=== PATIENT | male | born 1970 | race Caucasian/White ===

== ENCOUNTER 2020-06-28 08:26 | Outpatient (REF) | payer OTHER, SELFPAY ==
[2020-06-28 11:39] LABS: Anion Gap 13 (12-20); Blood Urea Nitrogen 7 mg/dL (9-16); Calcium 8.9 mg/dL (8.4-10.2); Carbon Dioxide 29 mmol/L (22-29); Chloride 101 mmol/L (96-108); Estimated Average Glucose 209 mg/dL; Estimated Glomerular Filt Rate > 60; Glucose Random 155 mg/dL (60-115); Hemoglobin A1c % 8.9 %; Potassium 4.3 mmol/l (3.3-5.1); Sodium 139 mmol/L (135-145)
== END 2020-06-28 08:27 | disposition home or self-care (01) ==
LOC: HO.HMGCLDS 08:26
PROVIDERS: PCP Internal Medicine; Visit Provider Internal Medicine
DX: E11.8 Type 2 diabetes mellitus with unspecified complications (principal); E78.00 Pure hypercholesterolemia, unspecified
CPT/HCPCS: 80048; 83036

== ENCOUNTER 2020-09-21 12:34 | Outpatient (REF) | payer OTHER, SELFPAY ==
[2020-09-21 14:00] LABS: MANUAL DIFF FLAG NO
[2020-09-21 14:04] LABS: Basophils Percent Auto 1.1 % (0-2); Eosinophils Absolute Auto 0.1 X10*3/uL (0.0-0.4); Eosinophils Percent Auto 1.7 % (0-4); Hematocrit 43.4 % (42-52); Imm Gran Abs Auto 0.02 X10*3/uL (0.00-0.03); Imm Gran Pct Auto 0.6 % (0.0-0.4); Lymphocytes Absolute Auto 1.3 X10*3/uL (1.2-4.9); Lymphocytes Percent Auto 36.5 % (20-40); Mean Corpuscular HGB Conc 34.6 g/dl (31.0-36.0); Mean Corpuscular Hemoglobin 30.1 pg (27.0-33.0); Mean Corpuscular Volume 87.1 fL (80-98); Mean Platelet Volume 10.5 fL (9.4-12.4); Monocytes Absolute Auto 0.4 X10*3/uL (0.1-1.2); Monocytes Percent Auto 10.5 % (2-11); Neutrophils Absolute Auto 1.8 X10*3/uL (2.0-8.3); Neutrophils Percent Auto 49.6 % (45-73); Platelet Count 251 X10*3/uL (160-400); Red Blood Count 4.98 X10*6/uL (4.60-5.80); White Blood Count 3.6 X10*3/uL (4.8-10.8)
[2020-09-21 14:47] LABS: Alanine Aminotransferase 16 U/L (0-40); Albumin Level 4.5 g/dL (3.5-5.0); Alkaline Phosphatase 35 U/L (39-117); Anion Gap 17 (12-20); Aspartate Amino Transferase 21 U/L (5-37); Bilirubin Total 1.3 mg/dL (0.0-1.0); Blood Urea Nitrogen 9 mg/dL (9-16); Calcium 8.9 mg/dL (8.4-10.2); Carbon Dioxide 26 mmol/L (22-29); Chloride 99 mmol/L (96-108); Cholesterol 214 mg/dL; Estimated Glomerular Filt Rate > 60; Glucose Fasting 132 mg/dL (60-99); HDL Cholesterol 62 mg/dL; LDL Cholesterol Calculated 139 mg/dl; Potassium 4.6 mmol/L (3.3-5.1); Sodium 137 mmol/L (135-145); Total Protein 6.9 g/dL (6.5-8.0); Triglycerides 68 mg/dL
[2020-09-21 14:50] LABS: Creatinine Urine 20.85 mg/dL; Microalbumin Urine < 5.0 mg/L
[2020-09-21 14:58] LABS: Estimated Average Glucose 177 mg/dL; Hemoglobin A1c % 7.8 %
== END 2020-09-21 12:35 | disposition home or self-care (01) ==
LOC: HO.HMGCLDS 12:34
PROVIDERS: PCP Internal Medicine; Visit Provider Internal Medicine
DX: Z00.00 Encounter for general adult medical examination without abnormal findings (principal); E11.9 Type 2 diabetes mellitus without complications; Z12.5 Encounter for screening for malignant neoplasm of prostate
CPT/HCPCS: 36415; 80053; 80061; 82043; 83036; 84153; 85025

== ENCOUNTER 2021-06-28 09:21 | Outpatient (REF) | payer OTHER, SELFPAY ==
[2021-06-28 11:35] LABS: Estimated Average Glucose 174 mg/dL; Hemoglobin A1c % 7.7 %
[2021-06-28 12:02] LABS: Alanine Aminotransferase 18 U/L (0-40); Albumin Level 4.4 g/dL (3.5-5.0); Anion Gap 13 (12-20); Aspartate Amino Transferase 20 U/L (5-37); Bilirubin Total 0.7 mg/dL (0.0-1.0); Blood Urea Nitrogen 13 mg/dL (9-16); Calcium 10.3 mg/dL (8.4-10.2); Carbon Dioxide 30 mmol/L (22-29); Chloride 105 mmol/L (96-108); Estimated Glomerular Filt Rate > 60; Glucose Fasting 52 mg/dL (60-99); Potassium 4.6 mmol/L (3.3-5.1); Sodium 143 mmol/L (135-145); Total Protein 6.8 g/dL (6.5-8.0); Triglycerides 47 mg/dL
[2021-06-28 12:03] LABS: Alkaline Phosphatase 36 U/L (39-117); Cholesterol 181 mg/dL; HDL Cholesterol 87 mg/dL; LDL Cholesterol Calculated 85 mg/dl
== END 2021-06-28 09:22 | disposition home or self-care (01) ==
LOC: HO.HMGCLDS 09:21
PROVIDERS: PCP Internal Medicine; Visit Provider Internal Medicine
DX: E11.9 Type 2 diabetes mellitus without complications (principal); E78.00 Pure hypercholesterolemia, unspecified
CPT/HCPCS: 36415; 80053; 80061; 83036

== ENCOUNTER 2021-11-13 15:24 | Outpatient (REF) | payer OTHER, SELFPAY ==
--- NOTE | ~2021-11-13 | US_ITS ---
EXAMINATION: BILATERAL LOWER EXTREMITY DEEP VENOUS ULTRASOUND CLINICAL INFORMATION: Bilateral lower extremity edema COMPARISON: No similar prior examinations are available for comparison. TECHNIQUE: Duplex Doppler imaging with compression maneuvers were performed of the bilateral lower extremity deep venous systems. FINDINGS: The bilateral visualized common femoral, femoral and popliteal veins demonstrate normal compressibility and color flow without evidence of venous thrombosis. Visualized portions of the bilateral calf veins demonstrate normal color fill-in suggesting patency. There is no evidence of a Schwartz's cyst. US/US venous duplex LE BI IMPRESSION: No evidence of deep venous thrombosis involving the bilateral lower extremities.
== END 2021-11-13 15:25 | disposition home or self-care (01) ==
LOC: HO.US 15:24
PROVIDERS: PCP Internal Medicine; Visit Provider Internal Medicine
DX: R22.43 Localized swelling, mass and lump, lower limb, bilateral (principal)
CPT/HCPCS: 93970

== ENCOUNTER 2021-11-24 06:39 | Day surgery (SDC) | payer OTHER, SELFPAY ==
[2021-11-21 09:16] VITALS: BMI 28.5
--- NOTE | 2021-11-23 09:14 | HO.ANESPROP2 ---
Documented by User: Isabella Hidalgo NP 11/23/21 09:15 HPI - Anesthesia Eval Consult details Narrative: 51yo M for Colonoscopy [facility] Past Medical History Medical History Diabetes Surgical History Surgical History (Updated 11/24/21 @ 07:31 by Latonya Stock MD) [place] teeth extracted Social History Social History Patient Tobacco Use Status: Former Tobacco user Quit Date: decades ago Use of substances other than those prescribed or required for medical reasons: No Are you DNR?: No Advance Directives: No Advance Directives Information Provided: Yes Meds Allergies Allergy/AdvReac Type Severity Reaction Status Date / Time No Known Allergies Allergy Unverified 11/19/21 19:03 Home Medications Medication Instructions Recorded Confirmed Last Taken Type insulin glargine 100 unit/mL (3 10 unit SUBCUT BEDTIME 11/23/21 11/23/21 Unknown History mL) subcutaneous pen (Basaglar KwikPen U-100 Insulin) Exam Exam Date and Time: November 23, 2021 0914 Height,Weight and Vital Signs: Height 5 ft 10 in Weight 90.265 kg Assessment and Plan Assessment Anesthesia Assessment: Chart Reviewed Documented by User: Latonya Stock MD 11/24/21 07:34 [facility] Past Medical History Medical History Diabetes Family History Family history of problems with anesthesia: No Surgical History Surgical History (Updated 11/24/21 @ 07:31 by Latonya Stock MD) [place] teeth extracted History of Problems with Anesthesia: No Social History Social History Patient Tobacco Use Status: Former Tobacco user Quit Date: decades ago Use of substances other than those prescribed or required for medical reasons: No Are you DNR?: No Advance Directives: No Advance Directives Information Provided: Yes Meds Allergies Allergy/AdvReac Type Severity Reaction Status Date / Time No Known Allergies Allergy Unverified 11/19/21 19:03 Home Medications Medication Instructions Recorded Confirmed Last Taken Type insulin glargine 100 unit/mL (3 10 unit SUBCUT BEDTIME 11/23/21 11/23/21 Unknown History mL) subcutaneous pen (Basaglar KwikPen U-100 Insulin) Exam Height,Weight and Vital Signs: Height 5 ft 10 in Weight 90.265 kg Vital Signs Temp Pulse Resp BP Pulse Ox 11/24/21 07:07 97.6 F 62 18 125/68 100 Pertinent Lab Results Pertinent Lab Results: POC 170mg/dL Airway Mallampati Class: I TM Dist: >3cm Neck ROM: Full Loose/Missing/Broken Teeth: No Heart: RRR Lungs: CTAB Assessment and Plan Assessment Anesthesia Assessment: Anesthesia Plan Discussed Final Anesthetic Review Family History of Problems with Anesthesia: No History of Problems with Anesthesia: No NPO: Yes ASA Class: II Final Preanesthetic Review: No Changes in Pt Med Stat, Meds/Allgs Chart Reviewed, Consent Obtained/Reviewed and Anes Risks/Benef Reviewed Patient Risk: Low Procedure Risk: Low Assessment/Block/Sedation in SS: Assess/Block/Sedation-SS Anesthetic Plan Anesthetic Plan: MAC: Disposition: Standard PACU
[2021-11-24 06:43] VITALS: BMI 27.2
[2021-11-24 07:07] VITALS: BP 125/68; PULSE 62; RESP 18; TEMP 36.4; O2SAT 100
[2021-11-24] MEDS: Lactated Ringers 1,000 ML 100 ML IVCONT (07:18)
[2021-11-24 08:11] LABS: Glucose, Whole Blood 170 mg/dL (60-115)
--- NOTE | 2021-11-24 08:31 | P.BOP_ITS ---
Brief Operative Note Date of Service: 11/24/21 Pre-op diagnosis: SCREENING Post-op diagnosis: other (Polyps) Procedure: Colonoscopy to the cecum and TI with cold snare polypectomy and bx/removal of polyps Surgeon: Richard Youssef Anesthesia: MAC Was an Machine Coremaker used for this Procedure?: No Estimated blood loss (mL): 2.0 Pathology: other (A. Polyps at 20cm) Condition: stable Disposition: PACU
[2021-11-24 08:34] VITALS: BP 98/50; PULSE 68; RESP 16; TEMP 36.4; O2SAT 97
[2021-11-24 08:49] VITALS: BP 124/73; PULSE 66; RESP 16; TEMP 36.4; O2SAT 100
[2021-11-24 09:04] VITALS: BP 117/82; PULSE 65; RESP 16; O2SAT 100
--- NOTE | 2021-11-24 18:49 | OP_ITS ---
SURGEON: Richard Youssef MD INDICATIONS: The patient presents for evaluation of colorectal cancer screening and family history of colon cancer. Full consent was obtained from him for this, including risks of bleeding and perforation. PREOPERATIVE DIAGNOSIS: POSTOPERATIVE DIAGNOSIS: PROCEDURE PERFORMED: Colonoscopy to the cecum and terminal ileum with cold snare polypectomy, and biopsy with removal of polyp. ESTIMATED BLOOD LOSS: COMPLICATIONS: ANESTHESIA: Monitored anesthesia care. ASSISTANTS: SPECIMENS: PREOPERATIVE DIAGNOSES: Colorectal cancer screening and family history of colon cancer. POSTOPERATIVE DIAGNOSES: Colorectal cancer screening and family history of colon cancer, small colon polyps, small internal hemorrhoids. DESCRIPTION OF PROCEDURE: The patient was placed in the left lateral decubitus position. The digital rectal exam revealed no abnormalities. The Olympus video pediatric colonoscope was entered into the rectum advanced easily to the cecum. Once in the cecum I did identify normal-appearing cecal pouch with appendiceal orifice and a normal-appearing ileocecal valve. The terminal ileum was cannulated and appeared normal. The scope withdrawn back from the colon. The entire cecum and ileocecal valve appeared normal. The scope was slowly withdrawn assessing all mucosal surfaces carefully. Preparation was excellent. At 20 cm were 3 probable hyperplastic polyps. One was approximately 5 or 6 mm in diameter, and this was removed with cold snare polypectomy, although not recovered. The polypectomy site appeared clean, without any sign of residual polyp nor any sign of significant bleeding. The other 2 polyps were less than 5 mm and were each biopsied and completely removed with cold biopsy forceps. I did not visualize any other polyps, colitis, nor angiodysplasia. In the rectum, scope was retroflexed visualizing minimal internal hemorrhoids, but no other pathology. The rectal mucosa appeared normal. The scope was straightened and withdrawn from the patient. He tolerated the procedure well and was returned to the recovery area in stable condition. IMPRESSION: 1. Small colon polyps. 2. Small internal hemorrhoids. PLAN: The results of the pathology will be checked. Even if these are not tubular adenomas, I would still recommend a followup colonoscopy in 5 years given the family history of colon cancer in a maternal grandmother and a maternal 1st cousin. MD JACKIE Weaver/KHADAR / [id number] [facility]
== END 2021-11-24 09:33 | disposition home or self-care (01) ==
PROVIDERS: PCP Internal Medicine; Visit Provider Internal Medicine
PROC: 0DJD8ZZ Inspection of Lower Intestinal Tract, Via Natural or Artificial Opening Endoscopic (ICD-10-PCS; CPT 45378; principal; 2021-11-24 07:30)
DX: Z12.11 Encounter for screening for malignant neoplasm of colon (principal); Z80.0 Family history of malignant neoplasm of digestive organs; K63.5 Polyp of colon; K64.8 Other hemorrhoids; E11.9 Type 2 diabetes mellitus without complications; Z79.4 Long term (current) use of insulin; Z87.891 Personal history of nicotine dependence
CPT/HCPCS: 45385; 45380; 82947; 88305; J2250

== ENCOUNTER 2021-11-28 08:06 | Outpatient (REF) | payer OTHER, SELFPAY ==
[2021-11-28 11:21] LABS: MANUAL DIFF FLAG NO
[2021-11-28 11:35] LABS: Basophils Percent Auto 1.4 % (0-2); Eosinophils Absolute Auto 0.1 X10*3/uL (0.0-0.4); Eosinophils Percent Auto 2.1 % (0-4); Hematocrit 40.3 % (42.0-52.0); Hemoglobin 13.7 g/dl (14.0-18.0); Imm Gran Abs Auto 0.01 X10*3/uL (0.00-0.03); Imm Gran Pct Auto 0.3 % (0.0-0.4); Lymphocytes Absolute Auto 1.3 X10*3/uL (1.2-4.9); Lymphocytes Percent Auto 46.2 % (20-40); Mean Corpuscular Hemoglobin 31.1 pg (27.0-33.0); Mean Corpuscular Volume 91.6 fL (80.0-98.0); Mean Platelet Volume 10.2 fL (9.4-12.4); Monocytes Absolute Auto 0.3 X10*3/uL (0.1-1.2); Monocytes Percent Auto 11.8 % (2-11); Neutrophils Absolute Auto 1.1 x10*3/uL (2.0-8.3); Neutrophils Percent Auto 38.2 % (45-73); Platelet Count 222 X10*3/uL (160-400); Red Cell Distribution Width 12.1 % (11.0-16.0); White Blood Count 2.9 X10*3/uL (4.8-10.8)
[2021-11-28 11:47] LABS: Alanine Aminotransferase 22 U/L (0-40); Albumin Level 4.1 g/dL (3.5-5.0); Alkaline Phosphatase 38 U/L (39-117); Anion Gap 14 (12-20); Aspartate Amino Transferase 23 U/L (5-37); Bilirubin Total 0.5 mg/dL (0.0-1.0); Blood Urea Nitrogen 11 mg/dL (9-16); Calcium 9.4 mg/dL (8.4-10.2); Carbon Dioxide 24 mmol/L (22-29); Chloride 107 mmol/L (96-108); Estimated Glomerular Filt Rate > 60; Glucose Random 203 mg/dL (60-115); Potassium 4.2 mmol/L (3.3-5.1); Sodium 141 mmol/L (135-145); Total Protein 6.6 g/dL (6.5-8.0)
[2021-11-28 12:03] LABS: Estimated Average Glucose 183 mg/dL
[2021-12-05 17:46] LABS: Islet Cell Antibody Screen NEGATIVE (NEGATIVE)
== END 2021-11-28 08:07 | disposition home or self-care (01) ==
LOC: HO.HMGCLDS 08:06
PROVIDERS: PCP Internal Medicine; Visit Provider Internal Medicine
DX: E11.9 Type 2 diabetes mellitus without complications (principal); Z79.4 Long term (current) use of insulin
CPT/HCPCS: 36415; 80053; 83036; 85025; 86255; 86341

== ENCOUNTER 2024-03-11 14:13 | Outpatient (REF) | payer OTHER, SELFPAY ==
[2024-03-11 14:34] LABS: MANUAL DIFF FLAG NO
[2024-03-11 15:12] LABS: Basophils Percent Auto 1.2 % (0-2); Eosinophils Percent Auto 1.2 % (0-4); Hematocrit 41.2 % (42.0-52.0); Hemoglobin 14.6 g/dl (14.0-18.0); Imm Gran Abs Auto 0.02 X10*3/uL (0.00-0.03); Imm Gran Pct Auto 0.6 % (0.0-0.4); Lymphocytes Absolute Auto 1.3 X10*3/uL (1.2-4.9); Lymphocytes Percent Auto 39.3 % (20-40); Mean Corpuscular HGB Conc 35.4 g/dl (31.0-36.0); Mean Corpuscular Hemoglobin 31.1 pg (27.0-33.0); Mean Corpuscular Volume 87.8 fL (80.0-98.0); Mean Platelet Volume 9.7 fL (9.4-12.4); Monocytes Absolute Auto 0.5 X10*3/uL (0.1-1.2); Monocytes Percent Auto 13.4 % (2-11); Neutrophils Absolute Auto 1.5 x10*3/uL (2.0-8.3); Neutrophils Percent Auto 44.3 % (45-73); Platelet Count 241 X10*3/uL (160-400); Red Blood Count 4.69 X10*6/uL (4.60-5.80); Red Cell Distribution Width 12.5 % (11.0-16.0); White Blood Count 3.4 X10*3/uL (4.8-10.8)
[2024-03-12 14:43] LABS: Immunoglobulin A 318 mg/dL (47-310)
[2024-03-12 21:33] LABS: Gliadin Deamidated IgA Ab 2.6 U/mL; Gliadin Deamidated IgG Ab 3.3 U/mL; Transglutaminase Ab IgG 2.3 U/mL; Transglutaminase IgA <1.0 U/mL
[2024-03-18 01:29] LABS: Endomysial IgA Antibody Negative (Negative)
== END 2024-03-11 14:14 | disposition home or self-care (01) ==
LOC: HO.LAB 14:13
PROVIDERS: PCP Internal Medicine; Visit Provider Internal Medicine
DX: R19.4 Change in bowel habit (principal)
CPT/HCPCS: 36415; 82784; 85025; 86231; 86258; 86364

== ENCOUNTER 2024-03-12 | Outpatient (REF) | payer OTHER, SELFPAY | END 2024-03-12 00:01 | disposition home or self-care (01) | LOC: HO.LNP | PROVIDERS: Visit Provider Internal Medicine | DX: R19.4 Change in bowel habit (principal) | CPT/HCPCS: 87177; 87209; 87329 ==

== ENCOUNTER 2024-03-13 14:29 | Outpatient (REF) | payer OTHER, SELFPAY ==
[2024-03-14 09:04] LABS: Campylobacter Not Detected (Not Detect.); Plesiomonas shigelloides Not Detected (Not Detect.); Salmonella Not Detected (Not Detect.); Vibrio Cholerae Not Detected (Not Detect.)
[2024-03-14 09:06] LABS: Adenovirus F 40/41 Not Detected (Not Detect.); Astrovirus Not Detected (Not Detect.); Cryptosporidium Not Detected (Not Detect.); Cyclospora cayetanensis Not Detected (Not Detect.); E. coli EAEC Not Detected (Not Detect.); E. coli EPEC Not Detected (Not Detect.); E. coli ETEC Not Detected (Not Detect.); E. coli STEC Not Detected (Not Detect.); Entamoeba histolytica Not Detected (Not Detect.); Giardia lamblia Not Detected (Not Detect.); Norovirus GI/GII Not Detected (Not Detect.); Rotavirus A Not Detected (Not Detect.); Sapovirus Not Detected (Not Detect.); Shigella sp./EIEC Not Detected (Not Detect.); Yersinia enterocolitica Detected (Not Detect.)
[2024-03-16 10:13] LABS: Vibrio Not Detected (Not Detect.)
== END 2024-03-13 14:30 | disposition home or self-care (01) ==
LOC: HO.LNP 14:29
PROVIDERS: Visit Provider Internal Medicine
DX: R19.4 Change in bowel habit (principal)
CPT/HCPCS: 87507

== ENCOUNTER 2024-05-08 14:59 | Outpatient (REF) | payer OTHER, SELFPAY ==
[2024-05-09 14:04] LABS: Adenovirus F 40/41 Not Detected (Not Detect.); Astrovirus Not Detected (Not Detect.); Campylobacter Not Detected (Not Detect.); Cryptosporidium Not Detected (Not Detect.); Cyclospora cayetanensis Not Detected (Not Detect.); E. coli EAEC Not Detected (Not Detect.); E. coli EPEC Not Detected (Not Detect.); E. coli ETEC Not Detected (Not Detect.); E. coli STEC Not Detected (Not Detect.); Entamoeba histolytica Not Detected (Not Detect.); Giardia lamblia Not Detected (Not Detect.); Norovirus GI/GII Not Detected (Not Detect.); Plesiomonas shigelloides Not Detected (Not Detect.); Rotavirus A Not Detected (Not Detect.); Salmonella Not Detected (Not Detect.); Sapovirus Not Detected (Not Detect.); Shigella sp./EIEC Not Detected (Not Detect.); Vibrio Not Detected (Not Detect.); Vibrio Cholerae Not Detected (Not Detect.)
[2024-05-09 15:22] LABS: Yersinia enterocolitica Detected (Not Detect.)
== END 2024-05-08 15:00 | disposition home or self-care (01) ==
LOC: HO.LNP 14:59
PROVIDERS: Visit Provider Internal Medicine
DX: R19.4 Change in bowel habit (principal)
CPT/HCPCS: 87177; 87209; 87329; 87507

== ENCOUNTER 2024-11-04 14:30 | Outpatient (AMB) | payer OTHER, SELFPAY ==
--- NOTE | 2024-11-04 14:18 | A.OFFPC_ITS ---
Vital Signs 11/04/24 14:44 Height 5 ft 10 in Weight 221 lb BMI 31.7 BP 126/80 Blood Pressure Location Lt brachial Position Sitting Pulse 67 Pulse Source Pulse Oximeter Temp 97.4 F Temp Source Axillary Pulse Oximetry (%) 97 Oxygen Delivery Method Room Air Intake Visit Reasons: Routine Manager Ct Required: No Accompanied by: Self / Same As Patient Allergies No Known Allergies Allergy (Verified 11/04/24 14:19) Tobacco use date assessed: 11/04/24 Dental Screening Dental Screen Date: 11/04/24 Did you have a dental visit in the last 12 months?: Yes Did you have a dental problem in the last 6 months where you did not have access to dental care?: No [facility] Medical History (Updated 11/04/24 @ 15:15 by Royal Robertson MD) Erectile dysfunction Diabetes Surgical History History of colonoscopy (~11/24/21) [place] teeth extracted Family History (Updated 11/04/24 @ 14:51 by Radha Denny MA) Mother No problems noted. Father No problems noted. Social History Housing: House Patient Tobacco Use Status: Former Tobacco user e-Cigarette/Vaping Use: Former Use service: No Current occupational status: employed Cognitive needs: No Hearing needs: No Vision needs: Yes (rx glasses) Questionnaire PHQ-9 Over the last 2 weeks, how often have you been bothered by any of the following problems? 1. Little interest or pleasure in doing things: not at all 2. Feeling down, depressed, or hopeless: not at all 3. Trouble falling or staying asleep, or sleeping too much: not at all 4. Feeling tired or having little energy: not at all 5. Poor appetite or overeating: not at all 6. Feeling bad about yourself - or that you are a failure or have let yourself or your family down: not at all 7. Trouble concentrating on things, such as reading the newspaper or watching television: not at all 8. Moving or speaking so slowly that other people could have noticed. Or the opposite - being so fidgety or restless that you have been moving around a lot more than usual: not at all 9. Thoughts that you would be better off or of hurting yourself in some way: not at all Total score: 0 Source: Developed by Drs. Richard Guerra, Veronika Lew, Mark Reeves and colleagues, with an educational garland from [employer]. Thrive Questionnaire Date Thrive assessed: 11/04/24 I am a: Patient Within the past 12 months, did the food you bought not last and you didn't have the money to get more?: Never true Within the past 12 months, did you worry whether your food would run out before you got money to buy more?: Never true Do you have trouble paying for medicines?: No Do you have trouble getting transportation to medical appointments?: No Do you have trouble paying your heating and electricity bill?: No Do you have trouble taking care of your child, family member or friend?: No Do you have trouble with day-to-day activities such as bathing, preparing meals, shopping, managing finances, etc.?: No Are you currently unemployed and looking for a job?: No Are you interested in more education?: No THRIVE Score: 0 AUDIT C Alcohol Use Questionnaire (AUDIT-C) 1. How often do you have a drink containing alcohol?: Monthly or less 2. How many drinks containing alcohol do you have on a typical day when you are drinking?: 1 or 2 3. How often do you have six or more drinks on one occasion?: Less than monthly Total Score: 2 DESI-7 AMB Questionnaire DESI-7 Date DESI - 7 assessed: 11/04/24 Feeling nervous, anxious, or on edge: 0 = Not at all Not being able to stop or control worryin = Not at all Worrying too much about different things: 0 = Not at all Trouble relaxin = Not at all Being so restless that it is hard to sit still: 0 = Not at all Becoming easily annoyed or irritable: 0 = Not at all Feeling afraid as if something awful might happen: 0 = Not at all Total DESI-7 score (0-4 normal; 5-9 mild; 10-14 moderate; 15-21 severe): 0 Source: Developed by Veronika Schwartz Kurt Kroenke and colleagues, with an educational garland from [employer]. Physical exam (Primary Care) Vital Signs: Last Vital Signs Temp 97.4 F 11/04/24 14:44 Pulse 67 11/04/24 14:44 BP 126/80 11/04/24 14:44 Pulse Ox 97 11/04/24 14:44 Oxygen Delivery Method Room Air 11/04/24 14:44 BMI result Body Mass Index 31.7 Tobacco/Smoking Status: Tobacco use Status Tobacco use date assessed 11/04/24 11/04/24 14:20 Patient Tobacco Use Status Former Tobacco user 11/04/24 14:20 e-Cigarette/Vaping Use Former Use 11/04/24 14:20 PHQ-9: PHQ-9 Score PHQ-9: Total score 0 11/04/24 14:52 Thrive Assessment: Date of Thrive Assessment Date Thrive assessed 11/04/24 11/04/24 14:20 Coding Level of Care Code New Pt Level 4 (50232) Complex EM visit Add On G2211 Diagnoses Diabetes E11.9 Erectile dysfunction N52.9 Assessment & Plan Assessment & Plan (1) Diabetes: Comment: IDDM Code(s): E11.9 - Type 2 diabetes mellitus without complications Category: Medical Plan: Condition is stable (2) Erectile dysfunction: Code(s): N52.9 - Male erectile dysfunction, unspecified Category: Medical Plan: Urology referral is made. Plan History of Present Illness The patient is a 54-year-old male presenting with erectile dysfunction and concerns of an oral lesion. The erectile dysfunction has been partially managed with medication, but the patient wishes to explore additional interventions through a urologist. Also noted is a persistent white patch on his lower lip which has not resolved over the last few months, prompting a future dermatological evaluation. The patient has a history of type 1 diabetes, which initially presented in his 40s and was initially misclassified as type 2 diabetes until a hospitalization for diabetic ketoacidosis confirmed the correct diagnosis. 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 - Genitourinary: Reports erectile dysfunction; requires urology referral. - Dermatologic: Reports a persistent white lesion on the lip. - Musculoskeletal: Denies physical pain Physical Exam General: Cooperative and healthy appearing Nutritional Appearance: Well nourished Orientation/consciousness: Patient oriented x3 Limitations: No limitations Head: Normal to inspection General: Appearance normal, both eyes and all related structures Neck: Normal visual inspection Chest: Normal palpation of entire chest wall Respiratory: No pains here ormal respiratory effort Neurology: Patient oriented x3, physically active Results Plan 1. Type 1 Diabetes Mellitus - Maintain current insulin therapy. - Ongoing endocrinology follow-up. 2. Erectile Dysfunction - Urology referral for comprehensive evaluation. 3. Oral Lesion - Dermatology referral for assessment and potential biopsy in December. Discussion Notes During the visit, we discussed the management of the patient's type 1 diabetes, which is being effectively managed under the care of an die repairer stamping with recent A1c levels at 6.2. For erectile dysfunction, I recommended a referral to a urologist, emphasizing the potential for more targeted treatment options beyond his current medications. Regarding the oral lesion, I advised that while the current appearance does not suggest immediate danger such as bleeding, a dermatological evaluation with the potential for a biopsy is warranted to rule out skin cancer. Finally, we agreed on a further dermatological evaluation scheduled for December, and I assured the patient that the procedure is non-urgent given the current clinical presentation. Patient Instructions - Schedule and attend the urology and dermatology appointments as discussed. - Continue regular use of prescribed insulin and follow up with your die repairer stamping. - Monitor the oral lesion for any changes such as bleeding or increase in size. - Maintain your physical exercise routine as planned. - Return for a follow-up appointment in six months or sooner if symptoms worsen. Orders: Referrals Urology Referral N52.9 - Male erectile dysfunction, unspecified Medications: Discontinued sulfamethoxazole-trimethoprim 800-160 mg Discontinued Reason: Patient no longer taking 1 tab PO BID 10 days 20 tabs 0RF ciprofloxacin HCl Discontinued Reason: Patient no longer taking 500 mg PO BID 10 tabs 0RF
[2024-11-04 14:44] VITALS: BP 126/80; PULSE 67; TEMP 36.3; O2SAT 97; BMI 31.7
--- OUTSIDE RECORDS SUMMARY | 2024-11-04 15:40 | XMS_ITS ---
Author Organization [facility] Address [address] [place] [phone] Care Team Providers Care Clipper Counters Name Role Phone NOÉ, KARTIK Primary Care Provider Richard Olivarez [phone] REASON FOR VISIT R/S OV Encounters Encounter Location Date Provider Diagnosis [facility] [address] [facility] [address] [place] [phone] 09/23/2024 Richard Youssef Plan Of Treatment No Information Progress Notes * YARELI MENDOZADOB:[birth year] (54 yo M)Acc No.[id number]:09/23/2024 Patient:?SULAIMAN MENDOZA :1970???Age:54 Y???Sex:Male Address:[address] [place] [address] [place] , [place], [address] * true * Date:? Generated for Printi purvi/Faino/eTransmitting on:?11/04/2024 03:40 PM EDT
--- OUTSIDE RECORDS SUMMARY | 2024-11-04 15:40 | XMS_ITS | Patient Health Record ---
Author Organization [facility] Address [address] [place] [address] Care Team Providers Care Aircraft Charter Dispatcher Name Role Phone NOÉ, JUVE Primary Care Provider Richard Olivarez [phone] Allergies No Known Allergies Results Component Value Reference Range Notes Giardia Ag Stool EIA Reviewed date:03/25/2024 07:08:46 PM Interpretation: Performing Lab:[facility], [address] [place] [phone] Notes/Report: Giardia Ag Stool EIA SEE NOTE GIARDIA AG, EIA, STOOL Micro Number: [id number] Test Status: Final Specimen Source: Stool Specimen Quality: Adequate Giardia Result 1: Not Detected Reference Range: Not Detected NOTE: Due to intermittent shedding, one negative sample does not necessarily rule out the presence of a parasitic infection. THIS TEST WAS PERFORMED AT: [facility] [address] [address] UCHE PANG MD Ova and Parasite Reviewed date:03/25/2024 07:08:28 PM Interpretation: Performing Lab:[address] [phone] Notes/Report: Ova and Parasite SEE NOTE OVA AND PARASITES, CONC AND PERM SMEAR Micro Number: [id number] Test Status: Final Specimen Source: Stool Specimen Quality: Adequate CONCENTRATION 1: No ova or parasites seen TRICHROME 1: No ova or parasites seen Routine Ova and Parasite exam may not detect some parasites that occasionally cause diarrheal illness. Cryptosporidium Antigen and/or Cyclospora Isospora Exam may be ordered to detect these parasites. For additional information, please refer to https://education.CPXi/faq/FAQ20 3 (This link is being provided for informational/ educational purposes only.) THIS TEST WAS PERFORMED AT: [facility] [address] [place] [phone] UCHE PANG MD GI PANEL Reviewed date:03/17/2024 06:17:49 PM Interpretation: Performing Lab:[facility], [address] [place] [phone] Notes/Report: Campylobacter Not Detected Not Detect. Plesiomonas shigelloides Not Detected Not Detect. Salmonella Not Detected Not Detect. Vibrio Detected Not Detect. 03/16/24 1012: * This is a corrected result * Vibrio previously reported as: Detected A Corrected results called to and read back by RODRIGO Pena FROM PROVIDER'S OFFICE at 1012 on 03/16/24 by KAILA. Vibrio Cholerae Not Detected Not Detect. Yersinia enterocolitica Detected Not Detect. Results of DETECTED YERSINIA ENTEROCOLITICA called to and AT Results of DETECTED YERSINIA ENTEROCOLITICA called to and AT read back by DR. MARADIAGA on 03/14/24 at 0905 by KAILA. read back by DR. MARADIAGA on 03/14/24 at 0905 by KAILA. CRITICAL RESULT CALLED TO INFECTION CONTROL VOICEMAIL 03/14 CRITICAL RESULT CALLED TO INFECTION CONTROL VOICEMAIL 03/14 AT 0855 AT 0855 E. coli EAEC Not Detected Not Detect. E. coli EPEC Not Detected Not Detect. E. coli ETEC Not Detected Not Detect. E. coli STEC Not Detected Not Detect. E. coli O157 Not applicable Not Detect. E. coli containing the O157 antigen are a subset of E. coli containing the O157 antigen are a subset of Shiga-like toxin-producing E. coli (STEC). Shiga-like toxin-producing E. coli (STEC). Shigella sp./EIEC Not Detected Not Detect. Cryptosporidium Not Detected Not Detect. Cyclospora cayetanensis Not Detected Not Detect. Entamoeba histolytica Not Detected Not Detect. Giardia lamblia Not Detected Not Detect. Adenovirus F 40/41 Not Detected Not Detect. Astrovirus Not Detected Not Detect. Norovirus GI/GII Not Detected Not Detect. Rotavirus A Not Detected Not Detect. Sapovirus Not Detected Not Detect. All results must be correlated with clinical findings. All results must be correlated with clinical findings. Negative results do not exclude the possibility of Negative results do not exclude the possibility of gastrointestinal infection and should not be used as the gastrointestinal infection and should not be used as the sole basis for diagnosis, treatment, or other management sole basis for diagnosis, treatment, or other management decisions. Virus, bacteria, and parasite nucleic acid may decisions. Virus, bacteria, and parasite nucleic acid may persist in vivo independently of organism viability. persist in vivo independently of organism viability. Additionally, some organisms may be carried symptomatically. Additionally, some organisms may be carried symptomatically. Detection of organism targets does not imply that the Detection of organism targets does not imply that the corresponding organisms are infectious or are the causative corresponding organisms are infectious or are the causative agents for clinical symptoms. There is a risk of false agents for clinical symptoms. There is a risk of false negative values due to the presence of sequence variants in negative values due to the presence of sequence variants in the gene targets of the assay, amplification inhibitors in the gene targets of the assay, amplification inhibitors in specimens, or inadequate numbers of organisms for specimens, or inadequate numbers of organisms for amplification. amplification. The identification of several diarrheagenic E. coli The identification of several diarrheagenic E. coli pathotypes has historically relied upon phenotypic pathotypes has historically relied upon phenotypic characteristics. This panel targets genetic determinants characteristics. This panel targets genetic determinants characteristic of most pathogenic strains, but may not characteristic of most pathogenic strains, but may not detect all strains having phenotypic characteristics of a detect all strains having phenotypic characteristics of a pathotype. pathotype. The performance of this test has not been established for The performance of this test has not been established for monitoring treatment of infection with any of the panel monitoring treatment of infection with any of the panel organisms. organisms. This assay is performed by Multiplexed PCR, utilizing the This assay is performed by Multiplexed PCR, utilizing the [employer] Film Array. [employer] Film Array. Campylobacter Not Detected Not Detect. Plesiomonas shigelloides Not Detected Not Detect. Salmonella Not Detected Not Detect. Vibrio Not Detected Not Detect. 03/16/24 1012: * This is a corrected result * Vibrio previously reported as: Detected A Corrected results called to and read back by RODRIGO Pena FROM PROVIDER'S OFFICE at 1012 on 03/16/24 by KAILA. Vibrio Cholerae Not Detected Not Detect. Yersinia enterocolitica Detected Not Detect. Results of DETECTED YERSINIA ENTEROCOLITICA called to and AT Results of DETECTED YERSINIA ENTEROCOLITICA called to and AT read back by DR. MARADIAGA on 03/14/24 at 0905 by KAILA. read back by DR. MARADIAGA on 03/14/24 at 0905 by KAILA. CRITICAL RESULT CALLED TO INFECTION CONTROL VOICEMAIL 03/14 CRITICAL RESULT CALLED TO INFECTION CONTROL VOICEMAIL 03/14 AT 0855 AT 0855 E. coli EAEC Not Detected Not Detect. E. coli EPEC Not Detected Not Detect. E. coli ETEC Not Detected Not Detect. E. coli STEC Not Detected Not Detect. E. coli O157 Not applicable Not Detect. E. coli containing the O157 antigen are a subset of E. coli containing the O157 antigen are a subset of Shiga-like toxin-producing E. coli (STEC). Shiga-like toxin-producing E. coli (STEC). Shigella sp./EIEC Not Detected Not Detect. Cryptosporidium Not Detected Not Detect. Cyclospora cayetanensis Not Detected Not Detect. Entamoeba histolytica Not Detected Not Detect. Giardia lamblia Not Detected Not Detect. Adenovirus F 40/41 Not Detected Not Detect. Astrovirus Not Detected Not Detect. Norovirus GI/GII Not Detected Not Detect. Rotavirus A Not Detected Not Detect. Sapovirus Not Detected Not Detect. All results must be correlated with clinical findings. All results must be correlated with clinical findings. Negative results do not exclude the possibility of Negative results do not exclude the possibility of gastrointestinal infection and should not be used as the gastrointestinal infection and should not be used as the sole basis for diagnosis, treatment, or other management sole basis for diagnosis, treatment, or other management decisions. Virus, bacteria, and parasite nucleic acid may decisions. Virus, bacteria, and parasite nucleic acid may persist in vivo independently of organism viability. persist in vivo independently of organism viability. Additionally, some organisms may be carried symptomatically. Additionally, some organisms may be carried symptomatically. Detection of organism targets does not imply that the Detection of organism targets does not imply that the corresponding organisms are infectious or are the causative corresponding organisms are infectious or are the causative agents for clinical symptoms. There is a risk of false agents for clinical symptoms. There is a risk of false negative values due to the presence of sequence variants in negative values due to the presence of sequence variants in the gene targets of the assay, amplification inhibitors in the gene targets of the assay, amplification inhibitors in specimens, or inadequate numbers of organisms for specimens, or inadequate numbers of organisms for amplification. amplification. The identification of several diarrheagenic E. coli The identification of several diarrheagenic E. coli pathotypes has historically relied upon phenotypic pathotypes has historically relied upon phenotypic characteristics. This panel targets genetic determinants characteristics. This panel targets genetic determinants characteristic of most pathogenic strains, but may not characteristic of most pathogenic strains, but may not detect all strains having phenotypic characteristics of a detect all strains having phenotypic characteristics of a pathotype. pathotype. The performance of this test has not been established for The performance of this test has not been established for monitoring treatment of infection with any of the panel monitoring treatment of infection with any of the panel organisms. organisms. This assay is performed by Multiplexed PCR, utilizing the This assay is performed by Multiplexed PCR, utilizing the [employer] Film Array. Pump! Array. CORRECTED REPORT Complete Blood Count Auto Di ff Reviewed date:03/17/2024 12:41:30 PM Interpretation: Performing Lab:[facility], [address] [place] [phone] Notes/Report: White Blood Count 3.4 4.8-10.8 X10*3/uL Red Blood Count 4.69 4.60-5.80 X10*6/uL Hemoglobin 14.6 14.0-18.0 g/dl Hematocrit 41.2 42.0-52.0 % Mean Corpuscular Volume 87.8 80.0-98.0 fL Mean Corpuscular Hemoglobin 31.1 27.0-33.0 pg Mean Corpuscular HGB Conc 35.4 31.0-36.0 g/dl Red Cell Distribution Width 12.5 11.0-16.0 % Platelet Count 241 160-400 X10*3/uL Mean Platelet Volume 9.7 9.4-12.4 fL Neutrophils Percent Auto 44.3 45-73 % Imm Gran Pct Auto 0.6 0.0-0.4 % Lymphocytes Percent Auto 39.3 20-40 % Monocytes Percent Auto 13.4 2-11 % Eosinophils Percent Auto 1.2 0-4 % Basophils Percent Auto 1.2 0-2 % NRBC Pct Auto 0.0 0.0-0.2 /100WBC Neutrophils Absolute Auto 1.5 2.0-8.3 x10*3/u L Imm Gran Abs Auto 0.02 0.00-0.03 X10*3/uL Lymphocytes Absolute Auto 1.3 1.2-4.9 X10*3/u L Monocytes Absolute Auto 0.5 0.1-1.2 X10*3/uL Eosinophils Absolute Auto 0.0 0.0-0.4 X10*3/u L Basophils Absolute Auto 0.0 0.0-0.2 X10*3/uL NRBC Abs Auto 0.000 0.0-0.012 X10*3/uL Immunoglobulin A Reviewed date:03/19/2024 07:10:59 AM Interpretation: Performing Lab:[facility], [address] [place] [phone] Notes/Report: Immunoglobulin A 318 47-310 mg/dL THIS TEST WAS PERFORMED AT: [facility] [address] [place] [phone] UCHE PANG MD Transglutaminase Ab IgG Reviewed date:03/19/2024 07:11:19 AM Interpretation: Performing Lab:[address] [phone] Notes/Report: Transglutaminase Ab IgG 2.3 Value Interpretation ----- <15.0 Antibody not detected > or = 15.0 Antibody detected THIS TEST WAS PERFORMED AT: [facility] [address] [place] [phone] UCHE PANG MD Transglutaminase IgA Reviewed date:03/19/2024 07:11:27 AM Interpretation: Performing Lab:[facility], [address] [place] [phone] Notes/Report: Transglutaminase IgA <1.0 Value Interpretation ----- <15.0 Antibody not detected > or = 15.0 Antibody detected THIS TEST WAS PERFORMED AT: [facility] [address] [place] [phone] UCHE PANG MD Gliadin Ab Panel Reviewed date:03/19/2024 07:11:47 AM Interpretation: Performing Lab:[facility], [address] [place] [phone] Notes/Report: Gliadin Deamidated IgA Ab 2.6 Value Interpretation ----- <15.0 Antibody not detected > or = 15.0 Antibody detected Gliadin Deamidated IgG Ab 3.3 Value Interpretation ----- <15.0 Antibody not detected > or = 15.0 Antibody detected THIS TEST WAS PERFORMED AT: [facility] [address] [place] [phone] UCHE PANG MD Endomysial IgA rflx Titer Reviewed date:03/19/2024 07:11:55 AM Interpretation: Performing Lab:[facility], [address] [place] [phone] Notes/Report: Endomysial IgA Antibody Negative Negative THIS TEST WAS PERFORMED AT: [facility] [id number] [place] [phone] CLARIBEL FULLER MD,PHD Endomysial Titer TNP Giardia Ag Stool EIA Reviewed date:05/12/2024 05:33:47 PM Interpretation: Performing Lab:[facility], [address] [place] [phone] Notes/Report: Giardia Ag Stool EIA SEE NOTE GIARDIA AG, EIA, STOOL Micro Number: [id number] Test Status: Final Specimen Source: Stool Specimen Quality: Adequate Giardia Result 1: Not Detected Reference Range: Not Detected NOTE: Due to intermittent shedding, one negative sample does not necessarily rule out the presence of a parasitic infection. THIS TEST WAS PERFORMED AT: [facility] [address] [phone] UCHE PANG MD Ova and Parasite Reviewed date:05/12/2024 05:34:12 PM Interpretation: Performing Lab:[address] [phone] Notes/Report: Ova and Parasite SEE NOTE OVA AND PARASITES, CONC AND PERM SMEAR Micro Number: [id number] Test Status: Final Specimen Source: Stool Specimen Quality: Adequate CONCENTRATION 1: No ova or parasites seen TRICHROME 1: No ova or parasites seen Routine Ova and Parasite exam may not detect some parasites that occasionally cause diarrheal illness. Cryptosporidium Antigen and/or Cyclospora and Isospora Exam may be ordered to detect these parasites. One negative sample does not necessarily rule out the presence of a parasitic infection. For additional information, please refer to https://education.CPXi/faq/FAQ20 3 (This link is being provided for informational/ educational purposes only.) THIS TEST WAS PERFORMED AT: [facility] [address] [phone] ALISON MURPHY MD GI PANEL Reviewed date:06/21/2024 01:05:56 PM Interpretation: Performing Lab:[address] [phone] Notes/Report: Campylobacter Not Detected Not Detect. Plesiomonas shigelloides Not Detected Not Detect. Salmonella Not Detected Not Detect. Vibrio Not Detected Not Detect. Vibrio Cholerae Not Detected Not Detect. Yersinia enterocolitica Detected Not Detect. Results of Yersinia enterocolitica DETECTED called to and read back by (public relations officer) (and ICAM) on 05/09/24 at 1521 by MAICOL. E. coli EAEC Not Detected Not Detect. E. coli EPEC Not Detected Not Detect. E. coli ETEC Not Detected Not Detect. E. coli STEC Not Detected Not Detect. E. coli O157 Not applicable Not Detect. E. coli containing the O157 antigen are a subset of Shiga-like toxin-producing E. coli (STEC). Shigella sp./EIEC Not Detected Not Detect. Cryptosporidium Not Detected Not Detect. Cyclospora cayetanensis Not Detected Not Detect. Entamoeba histolytica Not Detected Not Detect. Giardia lamblia Not Detected Not Detect. Adenovirus F 40/41 Not Detected Not Detect. Astrovirus Not Detected Not Detect. Norovirus GI/GII Not Detected Not Detect. Rotavirus A Not Detected Not Detect. Sapovirus Not Detected Not Detect. All results must be correlated with clinical findings. Negative results do not exclude the possibility of gastrointestinal infection and should not be used as the sole basis for diagnosis, treatment, or other management decisions. Virus, bacteria, and parasite nucleic acid may persist in vivo independently of organism viability. Additionally, some organisms may be carried asymptomatically. Detection of organism targets does not imply that the corresponding organisms are infectious or are the causative agents for clinical symptoms. There is a risk of false negative values due to the presence of sequence variants in the gene targets of the assay, amplification inhibitors in specimens, or inadequate numbers of organisms for amplification. The identification of several diarrheagenic E. coli pathotypes has historically relied upon phenotypic characteristics. This panel targets genetic determinants characteristic of most pathogenic strains, but may not detect all strains having phenotypic characteristics of a pathotype. The performance of this test has not been established for monitoring treatment of infection with any of the panel organisms. This assay is performed by Multiplexed PCR, utilizing the Pump! Array. Reason For Referral No Information Medications Medication SIG (Take, Route, Frequency, Duration) Notes Start Date End Date Status BD Pen Needle Short U/F 31G X 8 MM for 90 Active Basaglar KwikPen 100 UNIT/ML Subcutaneous for 30 Active HumaLOG 100 UNIT/ML as directed Subcutaneous Active Immunizations Vaccine Route Administration Date Status Comme nts Influenza Unknown 10/17/2021 Refused Influenza Unknown 03/11/2024 Refused Social History Tobacco Use: Social History Observation Description Date Details (start date - stop date) Never Smoker NA - NA Tobacco Use/Smoking Question Answer Notes Patient is a nonsmoker Alcohol Screen Question Answer Notes Did you have a drink contain ing alcohol in the past year? Yes How often did you have a dri nk containing alcohol in the past year? 2 to 3 times a week (3 points) How many drinks did you have on a typical day when you were drinking in the past year? 3 or 4 drinks (1 point) How often did you have 6 or more drinks on one occasion in the past year? Never (0 point) Points 4 Interpretation Positive Section Notes: Nonsmoker; 2-4 glasses of wi ne a few times a week Nonsmoker; 2-4 glasses of wi ne a few times a week Nonsmoker; 2-4 glasses of wi ne a few times a week Problems Problem Type SNOMED Code ICD Code Onset Dates Problem Status W/U Status Risk Notes Problem [id number] Encounter for screening for malignant neoplasm of colon (Z12.11) Active confirmed Problem Change in bowel habit (38885195) Change in bowel habits (R19.4) Active confirmed Problem 087485652209033 Preprocedural examination (Z01.818) Active confirmed Problem [id number] Family history of colorectal cancer (Z80.0) Active confirmed Problem Acute diarrhea (430375743) Acute diarrhea (R19.7) Active confirmed Vital Signs Temperature 97.8 degrees Fahrenheit 03/11/2024 Blood pressure diastolic 77 mm Hg 11/03/2024 Height 70 in 11/03/2024 Blood pressure systolic 111 mm Hg 11/03/2024 Weight 222 lbs 11/03/2024 BMI 31.85 kg/m2 11/03/2024 Encounters Encounter Location Date Provider Diagnosis [facility] [address] [place] [phone] 11/03/2024 Richard Youssef Abnormal stools R19.5 [facility] [address] [place] [phone] 03/11/2024 Richard Youssef Change in bowel habits R19.4 [facility] [address] [place] [phone] 03/16/2024 Richard Youssef [facility] [address] [place] [phone] 04/03/2024 Richard Youssef Acute diarrhea R19.7 [facility] [address] [place] [phone] 05/16/2024 Richard Youssef [facility] [address] [place] [phone] 09/23/2024 Richard Youssef Assessments Encounter Date Diagnosis (ICD Code) Assessment Notes Treatment Notes Treatment Clinical Notes Section Notes 11/03/2024 Abnormal stools (ICD-10 - R19.5) Overall, Noé appears quite well. We did review his history from the past several months but at this point he certainly does not seem clinically ill with any type of enteric infection. I advised him that I think would be reasonable to repeat stool specimens for both a GI panel and parasite analysis again. I did advise him to take a picture of what he feels are worms if he does see them, as well as to use that stool specimen to turn in for the ova and parasite. I do not have a good explanation as to why his stools were test positive for Yersinia although I did advise him that the GI panel tests for particles of bacterial DNA or RNA and do not actually grow the bacteria out like the stool cultures in the past. Whether or not that is affecting the results is hard for me to say. At this point I shall await the results of the stool specimens. Assuming those do not show anything new or worrisome and he continues to feel well I will plan to see him on apparent basis. We did review that he will be due for a follow-up colonoscopy in 2026 given his family history of colon cancer and his last exam being in 2021. Noé was comfortable with this plan. Thank you again for allowing me to participate in Noé's care. I shall continue to keep you advised of his progress as needed. 03/11/2024 Change in bowel habits (ICD-10 - R19.4) Collect stool and take a picture when you think you see a worm Overall, Noé appears quite well from a clinical standpoint. His change in bowel habits may very well be simply some irritable bowel syndrome, but could also reflect some change if indeed he has some type of intestinal infection. He certainly does not appear to be suffering from a systemic illness or infection at this time. I have recommended that we try to make a definitive diagnosis of any type of parasitic infection before continuing to try to empirically treat this. I have given him orders to have multiple stool specimens submitted, and will also check laboratories for a CBC with differential and a celiac disease profile. I advised him that if he does see any worms he should take a picture. He should also submit stool specimens with any worms that he might notice. If all of the specimens are negative and there does not appear to be infection then I would hold off on any specific treatment given that he has already been treated with a course of mebendazole. At this point I shall await the results of stool specimens and then followup with him accordingly. I did advise him to contact me prior to that if he has any problems with worsening diarrhea, fevers, or abdominal pain. We did review that he will be due for a followup colonoscopy in 2026 as well due to his family history of colon cancer despite his negative colonoscopy in 2021. Noé was comfortable with this plan. Thank you again for allowing me to participate in Noé's care. I shall continue to keep you advised of his progress. 04/03/2024 Acute diarrhea (ICD-10 - R19.7) 11/03/2024 Other Repeat colonoscopy in 2026 Overall, Noé appears quite well. We did review his history from the past several months but at this point he certainly does not seem clinically ill with any type of enteric infection. I advised him that I think would be reasonable to repeat stool specimens for both a GI panel and parasite analysis again. I did advise him to take a picture of what he feels are worms if he does see them, as well as to use that stool specimen to turn in for the ova and parasite. I do not have a good explanation as to why his stools were test positive for Yersinia although I did advise him that the GI panel tests for particles of bacterial DNA or RNA and do not actually grow the bacteria out like the stool cultures in the past. Whether or not that is affecting the results is hard for me to say. At this point I shall await the results of the stool specimens. Assuming those do not show anything new or worrisome and he continues to feel well I will plan to see him on apparent basis. We did review that he will be due for a follow-up colonoscopy in 2026 given his family history of colon cancer and his last exam being in 2021. Noé was comfortable with this plan. Thank you again for allowing me to participate in Noé's care. I shall continue to keep you advised of his progress as needed. Plan Of Treatment Pending Test Test Name Order Date CBC w DIFF 03/11/2024 CELIAC PANEL #10 03/11/2024 C DIFFICILE RFLX PCR 04/03/2024 Giardia Ag Stool EIA 11/03/2024 Giardia Ag Stool EIA 04/03/2024 Ova and Parasite 11/03/2024 Ova and Parasite 04/03/2024 GI PANEL 11/03/2024 GI PANEL 04/03/2024 Future Test Test Name Order Date COLONOSCOPY 10/17/2021 Insurance Providers Payer Name Payer Address Payer Phone Subscriber Number Group Number Insured Name Patient Relationship to Insured Coverage Start Date Coverage End Date [facility] [address] [place] [phone] [id number] YARELI MENDOZA Self - patient is the insured Medical (General) History Medical History History ICD Code IDDM Denies AR,DM,CVA,Lung disease,renal dise ase Screening 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 The first time was treated with a 10-day course of sulfamethoxazole. He was seen by Infectious Disease at [facility], Dr. Howard. Surgical History Surgery Date(Month/Year)
--- OUTSIDE RECORDS SUMMARY | 2024-11-04 15:40 | XMS_ITS | Clinical Summary ---
Author Organization [facility] Facility Address [address] [address] Care Team Providers Care Sheriff Sergeant Name Role Phone Unavailable Primary Care Provider Unavailabl e Social History Tobacco Use Types Packs/Day Years Used Date Smoking Tobacco: Never Assessed Sex and Gender Information Value Date Recorded Sex Assigned at Not on file Legal Sex Male 10:29 AM EDT Gender Identity Not on file Sexual Orientation Not on file Plan of Treatment Health Maintenance Due Date Last Done Comments Hepatitis B Vaccine (1 of 3 - 19+ 3-dose series) 02/07 Colorectal Cancer Screening: Annual FOBT 02/08/2020 Colorectal Cancer Screening: Colonoscopy 02/08/2020 Colorectal Cancer Screening: Sigmoidoscopy 02/08/2020 Pneumococcal Vaccine: 50+ Years (1 of 1 - PCV) 021 Influenza Vaccine (Season Ended) [address] [facility]
--- OUTSIDE RECORDS SUMMARY | 2024-11-04 15:40 | XMS_ITS ---
Author Organization [facility] Address [address] [place] [address] Care Team Providers Care Slot Machine Key Person Name Role Phone JUVE UMANZOR Primary Care Provider Richard Olivarez [phone] REASON FOR VISIT Patient presents today for a ?Parasite, infectious Encounters Encounter Location Date Provider Diagnosis [facility] [address] [facility] [address] [place] [id number] 09/25/2024 Richard Youssef Plan Of Treatment No Information Progress Notes * YARELI MENDOZADOB:[birth year] (54 yo M)Acc No.[id number]:09/25/2024 Progress Notes Patient:SULAIMAN PRIETO Provider:?Richard Youssef MD :1970???Age:54 Y???Sex:Male Carlos Enrique e:09/25/2024 Address:[address] [place] [address] [place] , [id number] Pcp:JUVE UMANZOR Subjective: * Chief Complaints: * ???1. Patient presents today for a ?Parasite, infectious. * Medical History:? Objective: * Vitals:? Assessment: Plan: * Treatment: * * The named appointment provid er may or may not be the originator of this progress note, and it is not deemed complete until electronically signed by the appointment provider. Sign off status: Pending * Provider:?Richard Youssef MD Date:? 025 Generated for Joe loja/Viraj/eTransmitting on:?11/04/2024 03:40 PM EDT
--- OUTSIDE RECORDS SUMMARY | 2024-11-04 15:40 | XMS_ITS | Continuity of Care Document ---
Author Organization [facility] Address [address] [place] [address] Phone [phone] Care Team Providers Care Manager Life Sciences Name Role Phone Jefry Rodriguez M.D. Care Team Information Receiv er [phone] Problems Active Problems Provider Date Type 1 diabetes mellitus Geno Esparza M.D. 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 04/14/2024 Z79.4 Lantus Pfqtdsrw835Yalt/ML Solution Pen-Inject inject 14 to 16 units at bedtime 15ml E10Mariama Esparza M.D. 02/10/2024 Z79.4 Novolog Prvppgx902Xzxy/ML Solution Pen-Inject inject up to 10 units subcutaneously three times daily, before meals 30ml E10Mariama Esparza M.D. 11/13/2023 Z79.4 Freestyle Lite TestStrips Use as directed to test blood sugars two to three times daily 300units Leon Esparza M.D. 02/06/2023 Dexcom G7 ReceiverDevice use for sugar reading with Dexcom sensors dx e10.9 1unbrady Esparza M.D. 12/05/2022 Dexcom G7 SensorMisc use to check sugar with Dexcom fish and game warden dx e10.9 9units Leon Esparza M.D. 12/05/2022 Baqsimi One Omyw6jl/Dose Powder spray into nostril as needed for low sugar reaction 1units Leon Esparza M.D. 12/03/2022 BD Pen Needle/Short/Ultra-Fin e/31G X 8mm31G X 8 mm Misc Use as directed 5 times daily 500units Leon Esparza M.D. 12/03/2022 Mupirocin2% Ointment apply to nasal ulcer three times a day for 10 days 15gm Geno Esparza M.D. 08/13/2022 Freestyle Sixto 3/Sensor/Glucose Monitoring Vbjkoq1Xkqaza Misc Apply One Sensor To Skin Every 14 Days DX: E10.9 2un Leon Esparza M.D. 08/10/2022 Freestyle Sixto 2/Sensor/Flash Glucose Monitoring Vybnsl1Tthwyt Misc apply sensor to skin every fourteen days as directed dx: e10.9 6un Leon Esparza M.D. 03/22/2022 Vitamin J620muj (1000 Ut) Capsules 1 by mouth every day 100caps Geno Esparza M.D. Vital Signs Date Vital Result Comment 09/03/2024 11:47am BP Systolic 130 mmHg BP Diastolic 82 mmHg Results Test Acquired Date Facility Test Result H/L Range Note Glucose Fingerstick 09/03/2024 Inhouse Glucose Fingerstick 142 Hemoglobin A1c 09/03/2024 Inhouse Hemoglobin A1c 6.3% Lipid Panel 09/03/2024 [facility] Cholesterol, Total 194 mg/dL 100-19 9 Triglycerides 70 mg/dL 0-149 HDL Cholesterol 98 mg/dL >39 VLDL Cholesterol [place] 13 mg/dL 5-40 LDL Chol Calc ([facility]) 83 mg/dL 0-99 LDL Calc Comment: TNP Glucose Fingerstick 01/03/2024 Inhouse Glucose Fingerstick 135 Hemoglobin A1c 01/03/2024 Inhouse Hemoglobin A1c 6.2% Albumin/Creatin ine Ratio, Random Urine 01/03/2024 [facility] Creatinine, Urine 59.2 mg/dL Not Estab. Albumin, Urine 3.3 ug/mL Not Estab. Alb/Creat Ratio 6 mg/gcreat 0-29 1 Vitamin B12 01/03/2024 [facility] Vitamin B12 354 pg/mL 232-12 45 TSH Rfx on Abnormal to Free T4 01/03/2024 [facility] TSH Rfx on Abnormal to Free T4 1.640 uIU/mL 0.450- 4.500 CBC With Differential/Pl atelet 01/03/2024 [facility] WBC 3.5 x10E3/uL 3.4-10 .8 RBC 4.65 x10E6/uL 4.14-5 .80 Hemoglobin 14.6 g/dL 13.0-1 7.7 Hematocrit 43.5 % 37.5-5 1.0 MCV 94 fL 79-97 MCH 31.4 pg 26.6-3 3.0 MCHC 33.6 g/dL 31.5-3 5.7 RDW 12.4 % 11.6-1 5.4 Platelets 253 x10E3/uL 150-45 0 Neutrophils 41 % Not Estab. Lymphs 40 % Not Estab. Monocytes 15 % Not Estab. Eos 2 % Not Estab. Basos 1 % Not Estab. Immature Cells TNP Neutrophils (Absolute) 1.5 x10E3/uL 1.4-7. 0 Lymphs (Absolute) 1.4 x10E3/uL 0.7-3. 1 Monocytes([place]ol [place]) 0.5 x10E3/uL 0.1-0. 9 Eos (Absolute) 0.1 x10E3/uL 0.0- 0. 4 Baso (Absolute) 0.0 x10E3/uL 0.0 -0. 2 Immature Granulocytes 1 % Not Estab. Immature Grans (Abs) 0.0 x10E3/uL 0.0-0. 1 NRBC TNP Hematology Comments: TNP Comp. Metabolic Panel (14) 01/03/2024 [facility] Alkaline Phosphatase 46 IU/L 44-121 Glucose 151 mg/dL High 70-99 BUN 12 mg/dL 6-24 Creatinine 0.91 mg/dL 0.76-1 .27 eGFR 101 mL/min/1.73 >59 BUN/Creatinine Ratio 13 9-20 Sodium 144 mmol/L 134-14 4 Potassium 4.7 mmol/L 3.5-5. 2 Chloride 104 mmol/L 96-106 Carbon Dioxide, Total 17 mmol/L Low 20-29 Calcium 9.6 mg/dL 8.7-10 .2 Protein, Total 7.0 g/dL 6.0-8. 5 Albumin 4.7 g/dL 3.8-4. 9 Globulin, Total 2.3 g/dL 1.5-4. 5 Bilirubin, Total 0.4 mg/dL 0.0-1. 2 Ast (Sgot) 30 IU/L 0-40 Alt (SGPT) 20 IU/L 0-44 Glucose Fingerstick 07/29/2023 Inhouse Glucose Fingerstick 116 Hemoglobin A1c 07/29/2023 Inhouse Hemoglobin A1c 6.3% Glucose Fingerstick 03/28/2023 Inhouse Glucose Fingerstick 135 Hemoglobin A1c 03/28/2023 Inhouse Hemoglobin A1c 6.0% Complete Abc With Diff 12/03/2022 [facility] WBC 3.2 K/MM3 Low (4.0-1 1.0) RBC 4.79 M/MM3 (4.70- 6.10) HGB 14.9 GM/DL (13.7- 17.1) HCT 44.9 % (40.5- 50.0) MCV 93.7 FL (80.0- 94.0) MCH 31.1 pg (27.0- 34.0) MCHC 33.2 g/dL (33.0- 37.0) PLT 238 K/MM3 (150-4 60) RDW-SD 43.6 FL (<47.0 ) MPV 10.7 FL (9.4-1 2.4) Automated NRBC 0.0 #/100WBC'S Abs. NRBC 0.0 K/MM3 Neut # 1.5 K/MM3 (1.3-7 .0) Lymph # 1.2 K/MM3 (0.8-3 .1) Floyd# 0.4 K/MM3 (0.4-1 .3) Eo # 0.1 K/MM3 (0.0-0 .4) Baso # 0.0 K/MM3 (0.0-0 .1) Abs. Imm Gran 0.0 K/MM3 Neut 47.5 % (44-76 ) Lymph 37.0 % (15-43 ) Monocyte 12.7 % High (4.5-1 0.5) Eo 1.6 % (0-6) Baso 0.9 % (0-2) Imm Gran 0.3 % Hemoglobin A1c 12/03/2022 Inhouse Hemoglobin A1c 5.9% Glucose Fingerstick 12/03/2022 Inhouse Glucose Fingerstick 198 25Oh Vitamin D 12/03/2022 [facility] 25Oh Vitamin D 108.0 NG/ML High (20-50 ) Vitamin B12 12/03/2022 [facility] Vitamin B12 404 pg/mL (232-1 245) TSH With Reflex To FT4 12/03/2022 [facility] TSH With Reflex To FT4 2.42 uIU/mL (0.4-4 .2) Comprehensive Metabolic Panl 12/03/2022 [facility] Glucose 181 mg/dL High (70-99 ) BUN 12 mg/dL (6-20) Creatinine 0.9 mg/dL (0.7-1 .2) Sodium 139 mmol/L (133-1 45) Potassium 5.3 mmol/L High (3.6-5 .2) Chloride 101 mmol/L (98-10 7) Bicarbonate 25 mmol/L (22-29 ) Anion Gap 13 (4-17) Albumin 4.8 GM/DL (3.4-4 .8) Calcium 9.9 mg/dL (8.6-1 0.5) Bilirubin,Total 0.6 mg/dL (0-1.2 ) Total Protein 7.0 GM/DL (6.2-8 .2) Ag Ratio 2.2 Ast 28 U/L (0-40) Alk Phos 41 U/L (40-12 9) Alt 21 U/L (0-41) Estimated GFR Creatinine 104 ML/MIN/1.73M2 2 Culture, Nose 08/10/2022 [facility] Specimen Description NASAL Special Requests NONE Culture 3+ STAPHYLOCOCCU <SEE NOTE> Abnormal 3 Report Status FINAL 08/13/2022 4 Glucose Fingerstick 08/10/2022 Inhouse Glucose Fingerstick 155 Hemoglobin A1c 08/10/2022 Inhouse Hemoglobin A1c 6.5% Urinary Microalbumin 08/08/2022 [facility] Micro-Albumin <12.0 mg/L (<20) 5 Malb/Creat Ratio Unable to calcul <SEE NOTE> MG/GM (0-20) 6 Urine Creat For Micro Albumin 216.4 mg/dL Lipid Panel 08/08/2022 [facility] Cholesterol, Total 190 mg/dL (<200) Triglyceride 120 mg/dL (<150) 7 HDL Chol 96 mg/dL (>39) LDL Cholesterol, Calculated 70 mg/dL (0-130 ) Non HDL Cholesterol (Calc) 94 mg/dL (<160) Glucose Fingerstick 04/17/2022 Inhouse Glucose Fingerstick 191 Hemoglobin A1c 04/17/2022 Inhouse Hemoglobin A1c 6.5% Hemoglobin A1c 01/31/2022 Inhouse Hemoglobin A1c 6.3% Glucose Fingerstick 01/31/2022 Inhouse Glucose Fingerstick 179 1 Normal: 0 - 29 Moderately increased: 30 - 300 Severely increased: >300 2 Creatinine based est imated glomerular filtration (eGFR) in adults is calculated using the National [employer] recommended 2020 CKD-EPI equation. Estimates GFR from serum creatinine, age and sex. 3 3+ STAPHYLOCOCCUS AU REUS. This isolate was identified using Maldi-TOF system These AST results were performed on the Tantalinecan ID and AST system 4 FINAL 08/13/2022 ORGANISM 3+ STAPHYLOCOCCUS AUREUS. This isolate was identified using Maldi-TOF system These AST results were performed on the Microscan ID and AST system METHOD MIN. INHIB. CONC. (MCG/ML) CIPROFLOXACIN SUSCEPTIBLE CLINDAMYCIN SUSCEPTIBLE ERYTHROMYCIN RESISTANT INDUCIBLE CLINDAMYCI NEGATIVE LEVOFLOXACIN SUSCEPTIBLE OXACILLIN SUSCEPTIBLE PENICILLIN RESISTANT RIFAMPIN SUSCEPTIBLE RIFAMPIN RIFAMPIN SHOULD NOT BE USED ALONE FOR ANTIMICROBIAL RIFAMPIN THERAPY. TETRACYCLINE INTERMEDIATE TRIMETH/SULFAMETHOX SUSCEPTIBLE VANCOMYCIN SUSCEPTIBLE 5 The urine microalbum in test is designed to monitor renal function. When screening for Bence Saavedra proteinuria, urine electrophoresis is recommended. 6 Unable to calculate 7 Fasting Procedures Date Code Description Status 09/03/2024 10356 Collection Of Venous Blood B y Venipuncture Completed 01/03/2024 47369 Collection Of Venous Blood B y Venipuncture Completed 12/03/2022 15374 Collection Of Venous Blood B y Venipuncture Completed Medical Devices Description No Information Available Encounters Type Date Location Provider Dx Diagnosis Office Visit 09/03/2024 11:00a Main Office Geno Esparza M.D. E10.9 Type 1 diabetes mellitus without complications Z79.4 longterm (current) use of insulin R03.0 Elevated blood-press ure reading, w/o diagnosis of htn Assessments Date Code Description Provider 09/03/2024 E10.9 Type 1 diabetes mellitus without complications Geno Esparza M.D. 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 09/03/2024 R03.0 Elevated blood-p ressure reading, without diagnosis of hypertension Geno Esparza M.D. Plan of Treatment Future Appointment(s):* 01/14/2025 11:00 am - Geno Esparza M.D. at Main Office 01/31/2022 - Geno Esparza M.D.* E10.9 Type 1 diabetes mellitus without complications Functional Status Description No Information Available Mental Status Description No Information Available Referrals Description No Information Available
--- OUTSIDE RECORDS SUMMARY | 2024-11-04 15:41 | XMS_ITS ---
Author Organization [facility] Address [address] [place] [phone] Care Team Providers Care Director Of Emergency Nursing Name Role Phone JUVE UMANZOR Primary Care Provider Richard Olivarez Unavailable [phone] Allergies No Known Allergies REASON FOR VISIT Patient presents today for ?Parasite, infectious Medications Medication SIG (Take, Route, Frequency, Duration) Notes Start Date End Date Status BD Pen Needle Short U/F 31G X 8 MM for 90 Active Basaglar KwikPen 100 UNIT/ML Subcutaneous for 30 Active HumaLOG 100 UNIT/ML as directed Subcutaneous Active Social History Tobacco Use: Social History Observation [...] wi ne a few times a week Vital Signs Blood pressure systolic 111 mm Hg 11/04/19 25 Blood pressure diastolic 77 mm Hg 025 Height 70 in 11/03/2024 Weight 222 lbs 11/03/2024 BMI 31.85 kg/m2 11/03/2024 Encounters Encounter Location Date Provider Diagnosis [facility] [address] [place] [address] 11/03/2024 Richard Youssef Abnormal stools R19.5 Assessments Encounter Date Diagnosis (ICD Code) Assessment [...] you advised of his progress as needed. 11/03/2024 Other Repeat colonoscopy in 2026 Overall, [...] his progress as needed. Plan Of Treatment Treatment Notes Assessment Notes Other Repeat colonoscopy i n 2026 Pending Test Test Name Order Date Giardia Ag Stool EIA 11/03/2024 Ova and Parasite 11/03/2024 GI PANEL 11/03/2024 Progress Notes * YARELI MENDOZADOB:[birth year] (54 yo M)Acc No.[id number]:11/03/2024 Progress Notes Patient:?SULAIMAN MENDOZA Brennen Provider:?Richard Yosusef MD :1970???Age:54 Y???Sex:Male Carlos Enrique e:11/03/2024 Address:[address] [place], [place] [id number] Pcp:JUVE UMANZOR Subjective: * Chief Complaints: * ???1. Patient presents today for ?Parasite, infectious. * HPI: ???incontinence:? I saw Noé in follow-up today in regard to his history of possibly seeing worms in his stools and then subsequently 2 positive stool specimens for Yersinia. I last saw Noé in March 2024 at which time he came in because of a concern about some parasitic infection in his stool. At that time he thought he was seeing some worms in his bowel movements. Based on that I did have him turn in stool specimens which were negative for any type of parasite but did test positive for Yersinia. This was treated with a 10-day course of sulfamethoxazole. A follow-up stool specimen was again positive for Yersinia. At that time and presently he was not feeling ill. He was having several bowel movements per day but not particularly diarrhea. He denied any abdominal pain or any signs of bleeding. After the second stool specimen still tested positive for Yersinia he was seen in consultation by infectious disease down at [facility]. He was seen on [address] Howard. He was not treated with any other medication. He was given a lab slip to turn in another stool specimen but never did that. He presently feels well. His bowel regimen remains the same with several bowel movements per day but not particularly loose nor problematic. He enjoys a good appetite and denies any significant heartburn or dysphagia. He denies any abdominal pain, jaundice, nor weight loss. He denies any rashes, red or swollen joints, nor any eye problems. He still describes seeing what he feels are some possible worms in his bowel movements. Again he did turn in 2 stool specimens for ova and parasite last year both of which were negative. Testing for celiac disease was negative last year as well. * Medical History:?IDDM, Denie s HI,DM,CVA,Lung disease,renal disease, Screening Colonoscopy 10/2021--hyperplastic polyps, Positive stool specimens for your Yersinia twice in fall. The first time was treated with a 10-day course of sulfamethoxazole. He was seen by Infectious Disease at [facility], Dr. Howard.. * Family History:?Father: dece ased.?Mother: .? No family history of Maternal grandmother had colon cancer in her 40's, 1st cousin(on mother's side) also had colon cancer at approx age 50 Son has Crohn's. NO family history of liver cancer. * Social History:?Tobacco Use:?Tobacco Use/Smoking?Patient is a?nonsmoker.?Drugs/Alcohol:?Alcohol Screen?Did you have a drink containing alcohol in the past year??Yes,?How often did you have a drink containing alcohol in the past year??2 to 3 times a week (3 points),?How many drinks did you have on a typical day when you were drinking in the past year??3 or 4 drinks (1 point),?How often did you have 6 or more drinks on one occasion in the past year??Never (0 point),?Points?4,?Interpretation?Positive.?Miscellaneous:?Marital status: . 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 ???Nonsmoker; 2-4 glasses of wine a few times a week. * Medications:?Taking HumaLOG 100 UNIT/ML Solution as directed Subcutaneous , Taking BD Pen Needle Short U/F 31G X 8 MM Miscellaneous , Taking Basaglar KwikPen 100 UNIT/ML Solution Pen-injector Subcutaneous , Medication List reviewed and reconciled with the patient * Allergies:?N.K.D.A. Objective: * Vitals:?Wt:222lbs, Ht: 70 in , BMI:31.85Index, BP:111/77mm Hg, Wt-k.7. Assessment: * Assessment: 1.?Abnormal stools - R19.5 ( Primary)??? Overall, Noé appears quite well. We did [...] you advised of his progress as needed. Plan: * Treatment: 2.?Others? Notes: Repeat colonoscopy in 2026?? * Preventive Medicine:? ??Counseling:?Care goal follow-up plan:?Above Normal BMI Follow-up?Giving encouragement to exercise,?BMI management provided?Yes.? * * The named appointment provid er may or may not be the originator of this progress note, and it is not deemed complete until electronically signed by the appointment provider. Sign off status: Pending * Provider:?Richard Youssef MD Date:? 025 Generated for Joe loja/Viraj/Angel on:?11/04/2024 03:40 PM EDT History and Physical Notes * HPI (History of Present Illness) Category Sub-Category Detail Notes Category Not es incontinence I saw Noé in follow-up today in regard to his history of possibly seeing worms in his stools and then subsequently 2 positive stool specimens for Yersinia. I last saw Noé in March 2024 at which time he came in because of a concern about some parasitic infection in his stool. At that time he thought he was seeing some worms in his bowel movements. Based on that I did have him turn in stool specimens which were negative for any type of parasite but did test positive for Yersinia. This was treated with a 10-day course of sulfamethoxazole. A follow-up stool specimen was again positive for Yersinia. At that time and presently he was not feeling ill. He was having several bowel movements per day but not particularly diarrhea. He denied any abdominal pain or any signs of bleeding. After the second stool specimen still tested positive for Yersinia he was seen in consultation by infectious disease down at [facility]. He was seen on [address] Howard. He was not treated with any other medication. He was given a lab slip to turn in another stool specimen but never did that. He presently feels well. His bowel regimen remains the same with several bowel movements per day but not particularly loose nor problematic. He enjoys a good appetite and denies any significant heartburn or dysphagia. He denies any abdominal pain, jaundice, nor weight loss. He denies any rashes, red or swollen joints, nor any eye problems. He still describes seeing what he feels are some possible worms in his bowel movements. Again he did turn in 2 stool specimens for ova and parasite last year both of which were negative. Testing for celiac disease was negative last year as well.
== END 2024-11-04 15:13 | disposition home or self-care (01) ==
LOC: HO.HMCHD 14:30
PROVIDERS: PCP Internal Medicine; Visit Provider Internal Medicine
DX: E11.9 Type 2 diabetes mellitus without complications (principal); N52.9 Male erectile dysfunction, unspecified

== ENCOUNTER → 2024-11-04 14:30 | Outpatient (BNVA) | payer OTHER, SELFPAY | PROVIDERS: PCP Internal Medicine; Visit Provider Internal Medicine ==

== ENCOUNTER 2025-01-20 09:30 | Outpatient (REF) | payer OTHER, SELFPAY ==
--- OUTSIDE RECORDS SUMMARY | 2025-01-20 14:04 | XMS_ITS | Patient Health Record ---
Author Organization [facility] Address [address] [place] [address] Care Team Providers Care Golf Club Head Former Name Role Phone NOÉ, JUVE Primary Care Provider Richard Olivarez [phone] Allergies No Known Allergies Results Component Value Reference Range Notes Giardia Ag Stool EIA Reviewed date:03/25/2024 07:08:46 PM Interpretation: Performing Lab:[facility], [address] [place] [phone] Notes/Report: Giardia Ag Stool EIA SEE NOTE GIARDIA AG, EIA, STOOL Micro Number: [id number] Test Status: Final Specimen Source: Stool Specimen Quality: Adequate Giardia Result 1: Not Detected Reference Range: Not Detected NOTE: Due to intermittent shedding, one negative sample does not necessarily rule out the presence of a parasitic infection. THIS TEST WAS PERFORMED AT: [facility] [address] [address] UCHE PANG MD Ova and Parasite Reviewed date:03/25/2024 07:08:28 PM Interpretation: Performing Lab:[address] [address] Notes/Report: Ova and Parasite SEE NOTE OVA AND PARASITES, CONC AND PERM SMEAR Micro Number: [id number] Test Status: Final Specimen Source: Stool Specimen Quality: Adequate CONCENTRATION 1: No ova or parasites seen TRICHROME 1: No ova or parasites seen Routine Ova and Parasite exam may not detect some parasites that occasionally cause diarrheal illness. Cryptosporidium Antigen and/or Cyclospora Isospora Exam may be ordered to detect these parasites. For additional information, please refer to https://education.SwiftPayMD(TM) by Iconic Data/faq/OBH458 (This link is being provided for informational/ educational purposes only.) THIS TEST WAS PERFORMED AT: [facility] [address] [place] [phone] UCHE PANG MD GI PANEL Reviewed date:03/17/2024 06:17:49 PM Interpretation: Performing Lab:[facility], [address] [place] [phone] Notes/Report: Campylobacter Not Detected Not Detect. Plesiomonas [...] is performed by Multiplexed PCR, utilizing the Anturis Film Array. Genscript TechnologyfirL3 Film Array. Campylobacter Not Detected Not Detect. [...] is performed by Multiplexed PCR, utilizing the Anturis Film Array. Genscript TechnologyfirL3 Film Array. Complete Blood Count Auto Di ff Reviewed date:03/17/2024 12:41:30 PM Interpretation: Performing Lab:[facility], [address] [place] [address] Notes/Report: White Blood Count 3.4 4.8-10.8 X10*3/uL [...] A Reviewed date:03/19/2024 07:10:59 AM Interpretation: Performing Lab:[address] [address] Notes/Report: Immunoglobulin A 318 47-310 mg/dL THIS TEST WAS PERFORMED AT: [facility] [address] [place] [phone] UCHE PANG MD Transglutaminase Ab IgG Reviewed date:03/19/2024 07:11:19 AM Interpretation: Performing Lab:[address] [address] Notes/Report: Transglutaminase Ab IgG 2.3 Value Interpretation ----- <15.0 Antibody not detected > or = 15.0 Antibody detected THIS TEST WAS PERFORMED AT: [facility] [address] [place] [address] UCHE PANG MD Transglutaminase IgA Reviewed date:03/19/2024 07:11:27 AM Interpretation: Performing Lab:[facility], [address] [place] [phone] Notes/Report: Transglutaminase IgA <1.0 Value Interpretation ----- <15.0 Antibody not detected > or = 15.0 Antibody detected THIS TEST WAS PERFORMED AT: [facility] [address] [place] [phone] UCHE PANG MD Gliadin Ab Panel Reviewed date:03/19/2024 07:11:47 AM Interpretation: Performing Lab:[facility], [address] [place] [phone] Notes/Report: Gliadin Deamidated IgA Ab 2.6 Value Interpretation ----- <15.0 Antibody not detected > or = 15.0 Antibody detected Gliadin Deamidated IgG Ab 3.3 Value Interpretation ----- <15.0 Antibody not detected > or = 15.0 Antibody detected THIS TEST WAS PERFORMED AT: [facility] [address] [place] [address] UCHE PANG MD Endomysial IgA rflx Titer Reviewed date:03/19/2024 07:11:55 AM Interpretation: Performing Lab:[address] [address] Notes/Report: Endomysial IgA Antibody Negative Negative THIS TEST WAS PERFORMED AT: [facility]/[address] [address] CLARIBEL FULLER MD,PHD Endomysial Titer TNP Giardia Ag Stool EIA Reviewed date:05/12/2024 05:33:47 PM Interpretation: Performing Lab:[address] [address] Notes/Report: Giardia Ag Stool EIA SEE NOTE GIARDIA AG, EIA, STOOL Micro Number: [id number] Test Status: Final Specimen Source: Stool Specimen Quality: Adequate Giardia Result 1: Not Detected Reference Range: Not Detected NOTE: Due to intermittent shedding, one negative sample does not necessarily rule out the presence of a parasitic infection. THIS TEST WAS PERFORMED AT: [facility] [address] [address] UCHE PANG MD Ova and Parasite Reviewed date:05/12/2024 05:34:12 PM Interpretation: Performing Lab:[address] [address] Notes/Report: Ova and Parasite SEE NOTE OVA AND PARASITES, CONC AND PERM SMEAR Micro Number: [id number] Test Status: Final Specimen Source: Stool Specimen [...] infection. For additional information, please refer to [email or web address](TM) by Iconic Data/faq/WXZ135 (This link is being provided for informational/ educational purposes only.) THIS TEST WAS PERFORMED AT: [facility] [address] [place] [address] ALISON MURPHY MD GI PANEL Reviewed date:06/21/2024 01:05:56 PM Interpretation: Performing Lab:[address] [address] Notes/Report: Campylobacter Not Detected Not Detect. Plesiomonas shigelloides Not Detected Not Detect. Salmonella Not Detected Not Detect. Vibrio Not Detected Not Detect. Vibrio Cholerae Not Detected Not Detect. Yersinia enterocolitica Detected Not Detect. Results of Yersinia enterocolitica DETECTED called to and read back by (instructional support services director) (and ICAM) on 05/09/24 at 1521 by [...] is performed by Multiplexed PCR, utilizing the [employer] Array. Reason For Referral No Information Medications [...] Problem Status W/U Status Risk Notes Problem [id number] Encounter for screening for malignant neoplasm of colon (Z12.11) Active confirmed Problem Change in bowel habit (17781369) Change in bowel habits (R19.4) Active confirmed Problem 482305788058031 Preprocedural examination (Z01.818) Active confirmed Problem 5451578713059 Family history of colorectal cancer (Z80.0) Active confirmed Problem Acute diarrhea (793118933) Acute diarrhea (R19.7) Active confirmed Vital Signs Temperature 97.8 degrees Fahrenheit 03/11/2024 Blood pressure diastolic 77 mm Hg 11/03/2024 Height 70 in 11/03/2024 Blood pressure systolic 111 mm Hg 11/03/2024 Weight 222 lbs 11/03/2024 BMI 31.85 kg/m2 11/03/2024 Encounters Encounter Location Date Provider Diagnosis [facility] [address] [place] [phone] 03/11/2024 Richard Youssef Change in bowel habits R19.4 [facility] [address] [place] [address] 11/03/2024 Richard Youssef Abnormal stools R19.5 [facility] [address] [place] [address] 03/16/2024 Richard Youssef [facility] [address] [place] [phone] 04/03/2024 Richard Youssef Acute diarrhea R19.7 [facility] [address] [place] [phone] 05/16/2024 Richard Youssef [facility] [address] [place] [phone] 09/23/2024 Richard Youssef Assessments Encounter Date Diagnosis (ICD Code) Assessment Notes Treatment Notes Treatment Clinical Notes Section Notes 03/11/2024 Change in bowel habits (ICD-10 - [...] to keep you advised of his progress. 11/03/2024 Abnormal stools (ICD-10 - R19.5) Overall, [...] I will plan to see him on a prn basis. We did review that he will be due for a follow-up colonoscopy in 2026 given his family history of colon cancer and his last exam being in 2021. Noé was comfortable with this plan. Thank you again for allowing me to participate in Noé's care. I shall continue to keep you advised of his progress as needed. 04/03/2024 Acute diarrhea (ICD-10 - R19.7) 11/03/2024 [...] I will plan to see him on a prn basis. We did review that he will [...] RFLX PCR 04/03/2024 Giardia Ag Stool EIA 04/03/2024 Giardia Ag Stool EIA 11/03/2024 Ova and Parasite 04/03/2024 Ova and Parasite 11/03/2024 GI PANEL 11/03/2024 GI PANEL 04/03/2024 Future Test Test Name Order Date COLONOSCOPY 10/17/2021 Insurance Providers Payer Name Payer Address Payer Phone Subscriber Number Group Number Insured Name Patient Relationship to Insured Coverage Start Date Coverage End Date [facility] [address] [place] [phone] [id number] YARELI MENDOZA Self - patient is the insured Medical (General) History Medical History History ICD Code IDDM Denies [place],DM,CVA,Lung disease,renal dise ase Screening 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 The first time was treated with a 10-day course of sulfamethoxazole. He was seen by Infectious Disease at [facility], Dr. Howard. Surgical History Surgery Date(Month/Year)
--- OUTSIDE RECORDS SUMMARY | 2025-01-20 14:04 | XMS_ITS | Clinical Summary ---
Author Organization [facility] Facility Address [address] [address] Care Team Providers Care Exceptional Student Education Aide Name Role Phone Unavailable Primary Care Provider [...] of 1 - PCV) 021 Influenza Vaccine (#1) 2025 Insurance [facility]
[2025-01-21 07:14] LABS: E. coli EAEC Not Detected (Not Detect.); E. coli EPEC Not Detected (Not Detect.); E. coli ETEC Not Detected (Not Detect.); E. coli STEC Not Detected (Not Detect.); Shigella sp./EIEC Not Detected (Not Detect.)
== END 2025-01-20 09:31 | disposition home or self-care (01) ==
LOC: HO.LNP 09:30
PROVIDERS: Visit Provider Internal Medicine
DX: Z01.84 Encounter for antibody response examination (principal); R19.5 Other fecal abnormalities
CPT/HCPCS: 87177; 87209; 87329; 87507

== ENCOUNTER 2025-02-16 12:52 | Outpatient (AMB) | payer OTHER, SELFPAY ==
--- NOTE | 2025-02-16 13:17 | MHC.OFFVIS ---
Intake Visit Reasons: erectile dysfunction Intake Note: New Patient is present for Erectile Dysfunction Urology Rx:none Blood Thinners:none Imaging completed: none Fruit Or Nut Crops Farm Manager Required: No Accompanied by: Self / Same As Patient Allergies No Known Allergies Allergy (Verified 02/16/25 13:18) [facility] Medical History (Updated 11/04/24 @ 15:15 by Royal Robertson MD) Erectile dysfunction Diabetes Surgical History History of colonoscopy (~11/24/21) Trion teeth extracted Family History (Updated 11/04/24 @ 14:51 by Radha Denny MA) Mother No problems noted. Father No problems noted. Social History Housing: House Patient Tobacco Use Status: Former Tobacco user e-Cigarette/Vaping Use: Former Use service: No Current occupational status: employed Cognitive needs: No Hearing needs: No Vision needs: Yes (rx glasses) Results AMB Urinalysis, Automated UA Leukoctes 0 Renuka/uL Last Edit by CATHY Latham on 02/16/25 14:00 UA Nitrite Negative Last Edit by CATHY Latham on 02/16/25 14:00 UA Urobilinogen 0.2 mg/dL Last Edit by CATHY Latham on 02/16/25 14:00 UA Protein 0 mg/dL Last Edit by CATHY Latham on 02/16/25 14:00 UA pH 7.0 Last Edit by CATHY Latham on 02/16/25 14:00 UA Blood 0 Edgar/uL Last Edit by CATHY Latham on 02/16/25 14:00 UA Specific [place] 1.010 Last Edit by CATHY Latham on 02/16/25 14:00 UA Ketone Positive Last Edit by CATHY Latham on 02/16/25 14:00 UA Bilirubin 0 mg/dL Last Edit by CATHY Latham on 02/16/25 14:00 UA Glucose 0 mg/dL Last Edit by CATHY Latham on 02/16/25 14:00 Assessment & Plan Assessment & Plan Orders: Orders Estrad Free (Tot Ultra + Free) Today N52.9 - Male erectile dysfunction, unspecified AMB Urinalysis Automated Today Z13.9 - Encounter for screening, unspecified Testosterone, Total Today N52.9 - Male erectile dysfunction, unspecified Lutenizing Hormone Today N52.9 - Male erectile dysfunction, unspecified Follicle Stimulating Hormone Today N52.9 - Male erectile dysfunction, unspecified Coding
--- OUTSIDE RECORDS SUMMARY | 2025-02-16 14:02 | XMS_ITS | Clinical Summary ---
Author Organization [facility] Facility Address [address] [address] Care Team Providers Care Director Of Resource Development Name Role Phone Unavailable Primary Care Provider [...] PCV) 021 Influenza Vaccine (#1) 2025 Insurance [facility]
--- OUTSIDE RECORDS SUMMARY | 2025-02-16 14:02 | XMS_ITS | Patient Health Record ---
Author Organization [facility] Address [address] [place] [address] Care Team Providers Care Voice Pathologist Name Role Phone NOÉ, JUVE Primary Care Provider Richard Olivarez [phone] Allergies No Known Allergies Results Component Value Reference Range Notes Giardia Ag Stool EIA Reviewed date:03/25/2024 07:08:46 PM Interpretation: Performing Lab:[facility], [address] [place] [address] Notes/Report: Giardia Ag Stool EIA SEE NOTE GIARDIA AG, EIA, STOOL Micro Number: [id number] Test Status: Final Specimen Source: Stool Specimen Quality: Adequate Giardia Result 1: Not Detected Reference Range: Not Detected NOTE: Due to intermittent shedding, one negative sample does not necessarily rule out the presence of a parasitic infection. THIS TEST WAS PERFORMED AT: [facility] [address] [address] UCHE PNAG MD Ova and Parasite Reviewed date:03/25/2024 07:08:28 PM Interpretation: Performing Lab:[address] [address] Notes/Report: Ova and Parasite SEE NOTE OVA AND PARASITES, CONC AND PERM SMEAR Micro Number: [id number] Test Status: Final Specimen Source: Stool Specimen Quality: Adequate CONCENTRATION 1: No ova or parasites seen TRICHROME 1: No ova or parasites seen Routine Ova and Parasite exam may not detect some parasites that occasionally cause diarrheal illness. Cryptosporidium Antigen and/or Cyclospora Isospora Exam may be ordered to detect these parasites. For additional information, please refer to https://education.[employer]/faq/KOG760 (This link is being provided for informational/ educational purposes only.) THIS TEST WAS PERFORMED AT: [facility] [address] [place] [phone] UCHE PANG MD GI PANEL Reviewed date:03/17/2024 06:17:49 PM Interpretation: Performing Lab:[facility], [address] [place] [address] Notes/Report: Campylobacter Not Detected Not Detect. Plesiomonas [...] is performed by Multiplexed PCR, utilizing the Crimson Hexagon Film Array. [employer] [employer] MaterialsfirSense Platform Film Array. Campylobacter Not Detected Not Detect. [...] is performed by Multiplexed PCR, utilizing the Crimson Hexagon Film Array. [employer] [employer] MaterialsfirSense Platform Film Array. Complete Blood Count Auto Di ff Reviewed date:03/17/2024 12:41:30 PM Interpretation: Performing Lab:[facility], [address] [place] [address] Notes/Report: White Blood Count 3.4 4.8-10.8 X10*3/uL [...] A Reviewed date:03/19/2024 07:10:59 AM Interpretation: Performing Lab:[address] [address] Notes/Report: Immunoglobulin A 318 47-310 mg/dL THIS TEST WAS PERFORMED AT: [facility] [address] [place] [phone] UCHE PANG MD Transglutaminase Ab IgG Reviewed date:03/19/2024 07:11:19 AM Interpretation: Performing Lab:[address] [address] Notes/Report: Transglutaminase Ab IgG 2.3 Value Interpretation ----- <15.0 Antibody not detected > or = 15.0 Antibody detected THIS TEST WAS PERFORMED AT: [facility] [address] [place] [phone] UCHE PANG MD Transglutaminase IgA Reviewed date:03/19/2024 07:11:27 AM Interpretation: Performing Lab:[facility], [address] [place] [address] Notes/Report: Transglutaminase IgA <1.0 Value Interpretation ----- <15.0 Antibody not detected > or = 15.0 Antibody detected THIS TEST WAS PERFORMED AT: [facility] [address] [place] [phone] UCHE PANG MD Gliadin Ab Panel Reviewed date:03/19/2024 07:11:47 AM Interpretation: Performing Lab:[facility], [address] [place] [address] Notes/Report: Gliadin Deamidated IgA Ab 2.6 Value Interpretation ----- <15.0 Antibody not detected > or = 15.0 Antibody detected Gliadin Deamidated IgG Ab 3.3 Value Interpretation ----- <15.0 Antibody not detected > or = 15.0 Antibody detected THIS TEST WAS PERFORMED AT: [facility] [address] [place] [phone] UCHE PANG MD Endomysial IgA rflx Titer Reviewed date:03/19/2024 07:11:55 AM Interpretation: Performing Lab:[address] [address] Notes/Report: Endomysial IgA Antibody Negative Negative THIS TEST WAS PERFORMED AT: [facility]/[address] [address] CLARIBEL FULLER MD,PHD Endomysial Titer TNP Giardia Ag Stool EIA Reviewed date:05/12/2024 05:33:47 PM Interpretation: Performing Lab:[address] [address] Notes/Report: Giardia Ag Stool EIA SEE NOTE GIARDIA AG, EIA, STOOL Micro Number: [id number] Test Status: Final Specimen Source: Stool Specimen Quality: Adequate Giardia Result 1: Not Detected Reference Range: Not Detected NOTE: Due to intermittent shedding, one negative sample does not necessarily rule out the presence of a parasitic infection. THIS TEST WAS PERFORMED AT: [facility] [address] [address] UCHE PANG MD Ova and Parasite Reviewed date:05/12/2024 05:34:12 PM Interpretation: Performing Lab:[address] [address] Notes/Report: Ova and Parasite SEE NOTE OVA AND PARASITES, CONC AND PERM SMEAR Micro Number: [id number] Test Status: Final Specimen Source: Stool Specimen [...] infection. For additional information, please refer to https://[email or web address]/faq/IQH054 (This link is being provided for informational/ educational purposes only.) THIS TEST WAS PERFORMED AT: [facility] [address] [place] [phone] ALISON MURPHY MD GI PANEL Reviewed date:06/21/2024 01:05:56 PM Interpretation: Performing Lab:[address] [address] Notes/Report: Campylobacter Not Detected Not Detect. Plesiomonas shigelloides Not Detected Not Detect. Salmonella Not Detected Not Detect. Vibrio Not Detected Not Detect. Vibrio Cholerae Not Detected Not Detect. Yersinia enterocolitica Detected Not Detect. Results of Yersinia enterocolitica DETECTED called to and read back by (promotions director) (and ICAM) on 05/09/24 at 1521 [...] is performed by Multiplexed PCR, utilizing the [employer] Array. Giardia Ag Stool EIA Reviewed date:01/30/2025 10:55:12 PM Interpretation: Performing Lab:[address] [address] Notes/Report: Giardia Ag Stool EIA SEE NOTE GIARDIA AG, EIA, STOOL Micro Number: [id number] Test Status: Final Specimen Source: Stool Specimen Quality: Adequate Giardia Result 1: Not Detected Reference Range: Not Detected NOTE: Due to intermittent shedding, one negative sample does not necessarily rule out the presence of a parasitic infection. THIS TEST WAS PERFORMED AT: [facility] [address] [place] [address] UCHE PANG MD Ova and Parasite Reviewed date:02/02/2025 08:54:43 AM Interpretation: Performing Lab:[address] [address] Notes/Report: Ova and Parasite SEE NOTE OVA AND PARASITES, CONC AND PERM SMEAR Micro Number: [id number] Test Status: Final Specimen Source: Stool Specimen [...] infection. For additional information, please refer to https://[email or web address]/faq/DBF571 (This link is being provided for informational/ educational purposes only.) THIS TEST WAS PERFORMED AT: [facility] [address] [place] [phone] ALISON MURPHY MD GI PANEL Reviewed date:01/26/2025 09:51:39 AM Interpretation: Performing Lab:[facility], [address] [place] [address] Notes/Report: Campylobacter Not Detected Not Detect. Plesiomonas shigelloides Not Detected Not Detect. Salmonella Not Detected Not Detect. Vibrio Not Detected Not Detect. Vibrio Cholerae Not Detected Not Detect. Yersinia enterocolitica Not Detected Not Detect. E. coli EAEC Not Detected Not Detect. [...] is performed by Multiplexed PCR, utilizing the [employer]ull [employer] Array. Reason For Referral No Information Medications [...] Problem Status W/U Status Risk Notes Problem [id number] Encounter for screening for malignant neoplasm of colon (Z12.11) Active confirmed Problem Change in bowel habit (35210392) Change in bowel habits (R19.4) Active confirmed Problem 319352098788238 Preprocedural examination (Z01.818) Active confirmed Problem 8689110961362 Family history of colorectal cancer (Z80.0) Active confirmed Problem Acute diarrhea (847678295) Acute diarrhea (R19.7) Active confirmed Vital Signs Temperature 97.8 degrees Fahrenheit 03/11/2024 Blood pressure diastolic 77 mm Hg 11/03/2024 Height 70 in 11/03/2024 Blood pressure systolic 111 mm Hg 11/03/2024 Weight 222 lbs 11/03/2024 BMI 31.85 kg/m2 11/03/2024 Encounters Encounter Location Date Provider Diagnosis [facility] [address] [place] [phone] 03/11/2024 Richard Youssef Change in bowel habits R19.4 [facility] [address] [place] [phone] 11/03/2024 Richard Youssef Abnormal stools R19.5 [facility] [address] [place] [address] 03/16/2024 Richard Youssef [facility] [address] [place] [address] 04/03/2024 Richard Youssef Acute diarrhea R19.7 [facility] [address] [place] [phone] 05/16/2024 Richard Youssef [facility] [address] [place] [phone] 09/23/2024 Richard Youssef Assessments Encounter Date Diagnosis [...] Insured Coverage Start Date Coverage End Date [facility] [address] [place] [phone] [id number] YARELI MENDOZA Self - patient is the insured Medical (General) History Medical History History ICD Code IDDM Denies [place],DM,CVA,Lung disease,renal dise ase Screening 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 The first time was treated with a 10-day course of sulfamethoxazole. He was seen by Infectious Disease at [facility], Dr. Howard. Surgical History Surgery Date(Month/Year)
== END 2025-02-16 14:31 | disposition home or self-care (01) ==
LOC: HO.HUSH 12:53
PROVIDERS: PCP Internal Medicine; Visit Provider Urology
DX: Z13.9 Encounter for screening, unspecified (principal)

== ENCOUNTER → 2025-02-16 12:52 | Outpatient (BNVA) | payer OTHER, SELFPAY | PROVIDERS: PCP Internal Medicine; Visit Provider Urology | DX: E11.69 Type 2 diabetes mellitus with other specified complication (principal); N52.1 Erectile dysfunction due to diseases classified elsewhere | CPT/HCPCS: 81003 ==

== ENCOUNTER 2025-03-03 09:45 | Outpatient (REF) | payer OTHER, SELFPAY ==
--- OUTSIDE RECORDS SUMMARY | 2024-03-11 09:40 | XMS_ITS ---
Author Organization [facility] Address [address] [place] [phone] Care Team Providers Care Border Measurer Name Role Phone JUVE UMANZOR Primary Care Provider Richard Olivarez [phone] REASON FOR VISIT Patient presents today for a parasite infection Encounters Encounter Location Date Provider Diagnosis [facility] [address] [facility] [address] [place] [phone] 03/11/2024 Richard Youssef Plan Of Treatment No Information Progress Notes * KELLY, YARELIDOB:[birth year] (55 yo M)Acc No.[id number]:03/11/2024 Progress Notes Patient: YARELI MCCLAIN Provider: Brennen Youssef MD :1970 A ge:54 Y S ex:Male Date:03/11/2024 Address:[address] [place] [address] [address] [facility] Pcp:JUVE UMANZOR Subjective: * Chief Complaints: * [...] MD Date: 0 03/11/2024 Generated for Ulyssesi ng/Famaricarmeng/eTransmitting on: 0 03/03/2025 10:49 AM EDT
--- OUTSIDE RECORDS SUMMARY | 2024-09-25 10:20 | XMS_ITS ---
Author Organization [facility] Address [address] [place] [phone] Care Team Providers Care Centrifugal Supervisor Name Role Phone JUVE UMANZOR Primary Care Provider Richard Olivarez [phone] REASON FOR VISIT Patient presents today for a ?Parasite, infectious Encounters Encounter Location Date Provider Diagnosis [facility] [address] [facility] [address] [place] [phone] 09/25/2024 Richard Youssef Plan Of Treatment No Information Progress Notes * KELLYANDRE LEMUSMACIELDOB:[birth year] (55 yo M)Acc No.[id number]:09/25/2024 Progress Notes Patient: YARELI MCCLAIN Provider: Brennen Youssef MD :1970 A ge:54 Y S ex:Male Date:09/25/2024 Address:[address] [place] [address] , Rog[place]io [facility] Pcp:JUVE UMANZOR Subjective: * Chief Complaints: * [...] Youssef MD Date: 0 09/25/2024 Generated for Ulyssesi purvi/Viraj/eTransmitting on: 0 03/03/2025 10:49 AM EDT
--- OUTSIDE RECORDS SUMMARY | 2025-03-03 10:50 | XMS_ITS | Clinical Summary ---
Author Organization [facility] Facility Address [address] [address] Care Team Providers Care Senior Restaurant Manager Name Role Phone Unavailable Primary Care Provider [...] PCV) 021 Influenza Vaccine (#1) 2025 Insurance [facility]
--- OUTSIDE RECORDS SUMMARY | 2025-03-03 10:50 | XMS_ITS | Patient Health Record ---
Author Organization [facility] Address [address] [place] [address] Care Team Providers Care Machine Setter Supervisor Name Role Phone NOÉ, JUVE Primary Care Provider Richard Olivarez [phone] Allergies No Known Allergies Results Component Value Reference Range Notes Giardia Ag Stool EIA Reviewed date:03/25/2024 07:08:46 PM Interpretation: Performing Lab:[facility], [address] [place] [phone] Notes/Report: Giardia Ag Stool EIA SEE NOTE GIARDIA AG, EIA, STOOL Micro Number: [id number] Test Status: Final Specimen Source: Stool Specimen Quality: Adequate Giardia Result 1: Not Detected Reference Range: Not Detected NOTE: Due to intermittent shedding, one negative sample does not necessarily rule out the presence of a parasitic infection. THIS TEST WAS PERFORMED AT: [facility] [address] [address] UCHE PANG MD Ova and Parasite Reviewed date:03/25/2024 07:08:28 PM Interpretation: Performing Lab:[address] [phone] Notes/Report: Ova and Parasite SEE NOTE OVA AND PARASITES, CONC AND PERM SMEAR Micro Number: [id number] Test Status: Final Specimen Source: Stool Specimen Quality: Adequate CONCENTRATION 1: No ova or parasites seen TRICHROME 1: No ova or parasites seen Routine Ova and Parasite exam may not detect some parasites that occasionally cause diarrheal illness. Cryptosporidium Antigen and/or Cyclospora Isospora Exam may be ordered to detect these parasites. For additional information, please refer to https://education.[employer]/faq/JQE036 (This link is being provided for informational/ educational purposes only.) THIS TEST WAS PERFORMED AT: [facility] [address] [place] [phone] UCHE PANG MD GI PANEL Reviewed date:03/17/2024 06:17:49 PM Interpretation: Performing Lab:[facility], [address] [place] [phone] Notes/Report: Campylobacter Not Detected Not Detect. Plesiomonas [...] is performed by Multiplexed PCR, utilizing the [employer] Film Array. [employer] Film Array. Campylobacter Not Detected Not Detect. [...] is performed by Multiplexed PCR, utilizing the [employer] Film Array. [employer] Film Array. Complete Blood Count Auto Di ff Reviewed date:03/17/2024 12:41:30 PM Interpretation: Performing Lab:[facility], [address] [place] [phone] Notes/Report: White Blood Count 3.4 4.8-10.8 X10*3/uL [...] A Reviewed date:03/19/2024 07:10:59 AM Interpretation: Performing Lab:[address] [phone] Notes/Report: Immunoglobulin A 318 47-310 mg/dL THIS TEST WAS PERFORMED AT: [facility] [address] [place] [phone] UCHE PANG MD Transglutaminase Ab IgG Reviewed date:03/19/2024 07:11:19 AM Interpretation: Performing Lab:[address] [address] Notes/Report: Transglutaminase Ab IgG 2.3 Value Interpretation ----- <15.0 Antibody not detected > or = 15.0 Antibody detected THIS TEST WAS PERFORMED AT: [facility] [address] [place] [phone] UCHE PANG MD Transglutaminase IgA Reviewed date:03/19/2024 07:11:27 AM Interpretation: Performing Lab:[facility], [address] [place] [phone] Notes/Report: Transglutaminase IgA <1.0 Value Interpretation ----- <15.0 Antibody not detected > or = 15.0 Antibody detected THIS TEST WAS PERFORMED AT: [facility] [address] [place] [phone] UCHE PANG MD Gliadin Ab Panel Reviewed date:03/19/2024 07:11:47 AM Interpretation: Performing Lab:[facility], [address] [place] [phone] Notes/Report: Gliadin Deamidated IgA Ab 2.6 Value Interpretation ----- <15.0 Antibody not detected > or = 15.0 Antibody detected Gliadin Deamidated IgG Ab 3.3 Value Interpretation ----- <15.0 Antibody not detected > or = 15.0 Antibody detected THIS TEST WAS PERFORMED AT: [facility] [address] [place] [phone] UCHE PANG MD Endomysial IgA rflx Titer Reviewed date:03/19/2024 07:11:55 AM Interpretation: Performing Lab:[address] [phone] Notes/Report: Endomysial IgA Antibody Negative Negative THIS TEST WAS PERFORMED AT: [facility]/[address] [address] CLARIBEL FULLER MD,PHD Endomysial Titer TNP Giardia Ag Stool EIA Reviewed date:05/12/2024 05:33:47 PM Interpretation: Performing Lab:[address] [address] Notes/Report: Giardia Ag Stool EIA SEE NOTE GIARDIA AG, EIA, STOOL Micro Number: [id number] Test Status: Final Specimen Source: Stool Specimen Quality: Adequate Giardia Result 1: Not Detected Reference Range: Not Detected NOTE: Due to intermittent shedding, one negative sample does not necessarily rule out the presence of a parasitic infection. THIS TEST WAS PERFORMED AT: [facility] [address] [address] UCHE PANG MD Ova and Parasite Reviewed date:05/12/2024 05:34:12 PM Interpretation: Performing Lab:[address] [phone] Notes/Report: Ova and Parasite SEE NOTE OVA AND PARASITES, CONC AND PERM SMEAR Micro Number: [id number] Test Status: Final Specimen Source: Stool Specimen [...] infection. For additional information, please refer to https://[employer]/faq/YFI952 (This link is being provided for informational/ educational purposes only.) THIS TEST WAS PERFORMED AT: [facility] [address] [place] [phone] ALISON MURPHY MD GI PANEL Reviewed date:06/21/2024 01:05:56 PM Interpretation: Performing Lab:[address] [phone] Notes/Report: Campylobacter Not Detected Not Detect. Plesiomonas shigelloides Not Detected Not Detect. Salmonella Not Detected Not Detect. Vibrio Not Detected Not Detect. Vibrio Cholerae Not Detected Not Detect. Yersinia enterocolitica Detected Not Detect. Results of Yersinia enterocolitica DETECTED called to and read back by (hospital account liaison) (and ICAM) on 05/09/24 at 1521 by [...] is performed by Multiplexed PCR, utilizing the [employer] Array. Giardia Ag Stool EIA Reviewed date:01/30/2025 10:55:12 PM Interpretation: Performing Lab:[address] [address] Notes/Report: Giardia Ag Stool EIA SEE NOTE GIARDIA AG, EIA, STOOL Micro Number: [id number] Test Status: Final Specimen Source: Stool Specimen Quality: Adequate Giardia Result 1: Not Detected Reference Range: Not Detected NOTE: Due to intermittent shedding, one negative sample does not necessarily rule out the presence of a parasitic infection. THIS TEST WAS PERFORMED AT: [facility] [address] [place] [phone] UCHE PANG MD Ova and Parasite Reviewed date:02/02/2025 08:54:43 AM Interpretation: Performing Lab:[address] [phone] Notes/Report: Ova and Parasite SEE NOTE OVA AND PARASITES, CONC AND PERM SMEAR Micro Number: [id number] Test Status: Final Specimen Source: Stool Specimen [...] infection. For additional information, please refer to https://[employer]/faq/HBC883 (This link is being provided for informational/ educational purposes only.) THIS TEST WAS PERFORMED AT: [facility] [address] [place] [phone] ALISON MURPHY MD GI PANEL Reviewed date:01/26/2025 09:51:39 AM Interpretation: Performing Lab:[facility], [address] [place] [phone] Notes/Report: Campylobacter Not Detected Not Detect. Plesiomonas [...] is performed by Multiplexed PCR, utilizing the [employer] Array. Reason For Referral No Information Medications [...] Problem Status W/U Status Risk Notes Problem [id number] Encounter for screening for malignant neoplasm of colon (Z12.11) Active confirmed Problem Change in bowel habit (28122641) Change in bowel habits (R19.4) Active confirmed Problem 252213254239190 Preprocedural examination (Z01.818) Active confirmed Problem [id number] Family history of colorectal cancer (Z80.0) Active confirmed Problem Acute diarrhea (579865333) Acute diarrhea (R19.7) Active confirmed Vital Signs Temperature 97.8 degrees Fahrenheit 03/11/2024 Blood pressure diastolic 77 mm Hg 11/03/2024 Height 70 in 11/03/2024 Blood pressure systolic 111 mm Hg 11/03/2024 Weight 222 lbs 11/03/2024 BMI 31.85 kg/m2 11/03/2024 Encounters Encounter Location Date Provider Diagnosis [facility] [address] [place] [phone] 03/11/2024 Richard Youssef Change in bowel habits R19.4 [facility] [address] [place] [phone] 11/03/2024 Richard Youssef Abnormal stools R19.5 [facility] [address] [place] [phone] 03/16/2024 Richard Youssef [facility] [address] [place] [phone] 04/03/2024 Richard Youssef Acute diarrhea R19.7 [facility] [address] [place] [phone] 05/16/2024 Richard Youssef [facility] [address] [place] [phone] 09/23/2024 Richard Youssef Assessments Encounter Date Diagnosis [...] 04/03/2024 Ova and Parasite 11/03/2024 GI PANEL 04/03/2024 GI PANEL 11/03/2024 Future Test Test Name Order Date COLONOSCOPY 10/17/2021 Insurance Providers Payer Name Payer Address Payer Phone Subscriber Number Group Number Insured Name Patient Relationship to Insured Coverage Start Date Coverage End Date [facility] [address] [place] [address] [id number] YARELI MENDOZA Self - patient is the insured Medical (General) History Medical History History ICD Code IDDM Denies PA,DM,CVA,Lung disease,renal dise ase Screening 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 The first time was treated with a 10-day course of sulfamethoxazole. He was seen by Infectious Disease at [facility], Dr. Howard. Surgical History Surgery Date(Month/Year)
[2025-03-04 08:27] LABS: Follicle Stimulating Hormone 2.3 mIU/mL (1.4-12.8)
[2025-03-31 03:24] LABS: Estradiol Free 0.40 pg/mL; Estradiol, Ultrasensitive 19 pg/mL (< OR = 29)
== END 2025-03-03 09:46 | disposition home or self-care (01) ==
LOC: HO.HMGCLDS 09:45
PROVIDERS: Visit Provider Urology
DX: N52.9 Male erectile dysfunction, unspecified (principal)
CPT/HCPCS: 36415; 82670; 82681; 83001; 83002; 84403

== ENCOUNTER 2025-05-05 14:01 | Outpatient (AMB) | payer OTHER, SELFPAY ==
--- OUTSIDE RECORDS SUMMARY | 2024-03-11 08:40 | XMS_ITS ---
Author Organization [facility] Address [address] [place] [phone] Care Team Providers Care Rn Licensed Practical Name Role Phone JUVE UMANZOR Primary Care Provider Richard Olivarez [phone] REASON FOR VISIT Patient presents today for a parasite infection Encounters Encounter Location Date Provider Diagnosis [facility] [address] [facility] [address] [place] [phone] 03/11/2024 Richard Youssef Plan Of Treatment No Information Progress Notes * KELLY, YARELIDOB:[birth year] (55 yo M)Acc No.[id number]:03/11/2024 Progress Notes Patient: YARELI MCCLAIN Provider: Brennen Youssef MD :1970 A ge:54 Y S ex:Male Date:03/11/2024 Address:[address] [place] [address] [address] [facility] Pcp:JUVE UMANZOR Subjective: * Chief Complaints: * 1 . Patient presents today for a parasite infection. * Medical History: Objective: * Vitals: Assessment: Plan: * Treatment: * * The named appointment provid er may or may not be the originator of this progress note, and it is not deemed complete until electronically signed by the appointment provider. Sign off status: Pending * Provider: Brennen Youssef MD Date: 0 03/11/2024 Generated for Ulyssesi purvi/Faino/eTransmitting on: 07/05/2024 05:14 PM EST
--- OUTSIDE RECORDS SUMMARY | 2024-09-25 09:20 | XMS_ITS ---
Author Organization [facility] Address [address] [place] [phone] Care Team Providers Care Armored Service Technician Name Role Phone JUVE UMANZOR Primary Care Provider Richard Olivarez [phone] REASON FOR VISIT Patient presents today for a ?Parasite, infectious Encounters Encounter Location Date Provider Diagnosis [facility] [address] [place] [phone] 09/25/2024 Richard Youssef Plan Of Treatment No Information Progress Notes * YARELI MENDOZADOB:[birth year] (55 yo M)Acc No.[id number]:09/25/2024 Progress Notes Patient: YARELI MCCLAIN Provider: Brennen Youssef MD :1970 A ge:54 Y S ex:Male Date:09/25/2024 Address:[address] [place] [address] , [facility] Pcp:JUVE UMANZOR Subjective: * Chief Complaints: * 1 . Patient presents today for a ?Parasite, infectious. * Medical History: Objective: * Vitals: Assessment: Plan: * Treatment: * * The named appointment provid er may or may not be the originator of this progress note, and it is not deemed complete until electronically signed by the appointment provider. Sign off status: Pending * Provider: Brennen Youssef MD Date: 0 09/25/2024 Generated for Joe loja/Viraj/eTransmitting on: 07/05/2024 05:14 PM EST
[2025-05-05 13:41] VITALS: BP 139/70; PULSE 64; TEMP 36.4; O2SAT 97; BMI 32.7
--- NOTE | 2025-05-05 13:41 | A.OFFPC_ITS ---
Vital Signs 05/05/25 13:41 Height 5 ft 10 in Weight 228 lb BMI 32.7 BP 139/70 Blood Pressure Location Lt brachial Position Sitting Pulse 64 Pulse Source Pulse Oximeter Temp 97.6 F Temp Source Temporal Artery Scan Pulse Oximetry (%) 97 Oxygen Delivery Method Room Air Intake Visit Reasons: Annual Clinical Lab Assistant Required: No Accompanied by: Self / Same As Patient Allergies No Known Allergies Allergy (Verified 05/05/25 14:04) Medication List - Last Reconciled 05/05/25 by Ketan Monteiro MD insulin aspart U-100 (Novolog FlexPen U-100 Insulin aspart) 0 - 10 units subcut TID insulin glargine (Lantus U-100 Insulin) inject 14 to 16 units qhs subcutaneously every evening; tadalafil 5 mg PO DAILY 90 days Tobacco use date assessed: 05/05/25 Dental Screening Dental Screen Date: 05/05/25 Did you have a dental visit in the last 12 months?: Yes Did you have a dental problem in the last 6 months where you did not have access to dental care?: No HPI HPI Comments History of Present Illness Details The patient is a 55-year-old male presenting for an annual physical examination. 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 Geno Marie. He was initially diagnosed with type 2 diabetes but was re-diagnosed with type 1 after an episode of diabetic ketoacidosis (DKA). His insulin regimen includes 14 units of long-acting insulin at night, adjusted based on his Dexcom readings, and he has previously been on a sliding scale three times a day. He has discussed an insulin pump but is hesitant to use one. He undergoes annual diabetic foot exams with his delivery and installation subcontractor and had his last diabetic eye exam in the summer of this year. The patient reports no neurop athy. The patient notes a new concern of his right eyelid feeling thicker than the left, causing it to droop slightly. For erectile dysfunction, he takes Cialis 5 mg daily and denies using sildenafil. His health maintenance includes a colonoscopy in 2021, with the next one due in 2026. He has a smoking history of less than 10 years and quit 30 years ago. He had labs drawn in January by urology and in December by his delivery and installation subcontractor, but does not have the results. Medical History: - Type 1 Diabetes Mellitus, with history of a diabetic ketoacidosis (DKA) event. - Erectile Dysfunction. - History of tobacco use: Smoked for les s than 10 years, quit 30 years ago. Medications: - Long-acting insulin: 14 units at night for type 1 diabetes. - Cialis (tadalafil) 5 mg: Daily for ere ctile dysfunction. Diagnostic Results: - Colonoscopy (2021): Next is due in . - Labs (December, from endocrinology): Inclu ded cholesterol, kidney, and liver function tests; results not available. - Labs (January, from urology): Included estradiol, FSH, and testosterone levels; results not available. Social History: - Substance Use: Patient is a former smo ker, having smoked for less than 10 years and quit 30 years ago. 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 - Exercise: Reports that he works out to stay active. - Weight Management: Expresses a desire to lose some weight. [facility] Medical History (Updated 05/05/25 @ 14:30 by Ketan Monteiro MD) History of tobacco use Annual physical exam Diabetes Surgical History History of colonoscopy (~11/24/21) Scroggins teeth extracted Family History (Updated 05/05/25 @ 14:15 by Radha Denny MA) Mother No problems noted. Father No problems noted. Social History Housing: House Patient Tobacco Use Status: Former Tobacco user e-Cigarette/Vaping Use: Former Use service: No Current occupational status: employed Cognitive needs: No Hearing needs: No Vision needs: Yes (rx glasses) Questionnaire PHQ-9 Over the last 2 weeks, how often have you been bothered by any of the following problems? 1. Little interest or pleasure in doing things: not at all 2. Feeling down, depressed, or hopeless: not at all 3. Trouble falling or staying asleep, or sleeping too much: not at all 4. Feeling tired or having little energy: not at all 5. Poor appetite or overeating: not at all 6. Feeling bad about yourself - or that you are a failure or have let yourself or your family down: not at all 7. Trouble concentrating on things, such as reading the newspaper or watching television: not at all 8. Moving or speaking so slowly that other people could have noticed. Or the opposite - being so fidgety or restless that you have been moving around a lot more than usual: not at all 9. Thoughts that you would be better off or of hurting yourself in some way: not at all Total score: 0 Depression Screening Interpretation: Negative Depression Screening Done: Yes 15414 - PHQ-9 Billing: Yes Source: Developed by Drs. Richard Guerra, Veronika Lew, Mark Reeves and colleagues, with an educational garland from [employer]. Thrive Questionnaire Date Thrive assessed: 05/05/25 I am a: Patient What is your living situation today?: I have a steady place to live Within the past 12 months, did the food you bought not last and you didn't have the money to get more?: Never true Within the past 12 months, did you worry whether your food would run out before you got money to buy more?: Never true Do you have trouble paying for medicines?: No Do you have trouble getting transportation to medical appointments?: No Do you have trouble paying your heating and electricity bill?: No Do you have trouble taking care of your child, family member or friend?: No Do you have trouble with day-to-day activities such as bathing, preparing meals, shopping, managing finances, etc.?: No Are you currently unemployed and looking for a job?: No Are you interested in more education?: No THRIVE Score: 0 AUDIT C Alcohol Use Questionnaire (AUDIT-C) 1. How often do you have a drink containing alcohol?: Monthly or less 2. How many drinks containing alcohol do you have on a typical day when you are drinking?: 1 or 2 3. How often do you have six or more drinks on one occasion?: Less than monthly Total Score: 2 Score Reviewed/Action Taken: Yes DESI-7 AMB Questionnaire DESI-7 Date DESI - 7 assessed: 05/05/25 Feeling nervous, anxious, or on edge: 0 = Not at all Not being able to stop or control worryin = Not at all Worrying too much about different things: 0 = Not at all Trouble relaxin = Not at all Being so restless that it is hard to sit still: 0 = Not at all Becoming easily annoyed or irritable: 0 = Not at all Feeling afraid as if something awful might happen: 0 = Not at all Total DESI-7 score (0-4 normal; 5-9 mild; 10-14 moderate; 15-21 severe): 0 Source: Developed by Drs. Richard Guerra, Veronika Lew, Mark Reeves and colleagues, with an educational garland from [employer]. DESI-7 Assessment Billing DESI-7 Assessment Tool: DESI-7 Assessment 46371 Review of Systems Narrative - General: Denies feeling unwell, but reports wanting to lose weight. - Constitutional: Denies nausea and vomiting. - Eyes: Reports a sensation of thickening in the right eyelid. Denies vision c hanges. - Cardiovascular: Denies chest pain. - Respiratory: Denies shortness of breath. - Neurological: Denies headaches and neuropathy. - Psychiatric: Reports good mood. Denies depression, anxiety, feeling sad or down, and thoughts of self-harm. All systems reviewed & are unremarkable except as reviewed in HPI and above Physical exam (Primary Care) Vital Signs: Last Vital Signs Temp 97.6 F 05/05/25 13:41 Pulse 64 05/05/25 13:41 BP 139/70 05/05/25 13:41 Pulse Ox 97 05/05/25 13:41 Oxygen Delivery Method Room Air 05/05/25 13:41 BMI result Body Mass Index 32.7 Tobacco/Smoking Status: Tobacco use Status Tobacco use date assessed 05/05/25 05/05/25 14:06 Patient Tobacco Use Status Former Tobacco user 05/05/25 13:44 e-Cigarette/Vaping Use Former Use 05/05/25 13:44 PHQ-9: PHQ-9 Score PHQ-9: Total score 0 05/05/25 14:06 Depression Screening Interpretation: Negative Thrive Assessment: Date of Thrive Assessment Date Thrive assessed 05/05/25 05/05/25 14:06 Narrative General: Alert and oriented, Well nourished, No acute distress. Eye: Pupils are equal, round and reactive to light, Intact accommodation, Extraocular movements are intact, Normal conjunctiva, Right eyelid appears thicker than the left, Vision unchanged. HENT: Normocephalic, Atraumatic, Tympanic membranes are clear, Normal hearing, Oral mucosa is moist, No pharyngeal erythema, Ear canals patent. Respiratory: Lungs CTA bilaterally, No wheeze, Respirations are non-labored. Cardiovascular: Regular rate, Regular rhythm, S1 auscultated, S2 auscultated, No murmur, Good pulses equal in all extremities, Normal peripheral perfusion, No edema. Gastrointestinal: Soft, Non-tender, Non-distended, Normal bowel sounds, No organomegaly. Musculoskeletal: Normal range of motion, Normal strength, No tenderness, No swelling, No deformity, Normal gait. Integumentary: Warm, Dry, [place], Intact. Neurologic: Alert, Oriented, Normal sensory, Normal motor function, No focal defects, Cranial Nerves II-XII are grossly intact, Normal deep tendon reflexes. Psychiatric: Cooperative, Appropriate mood & affect, Normal judgment. Coding Level of Care Code Est Pt Prev Care 40-64y(98635) Diagnoses Annual physical exam Z00.00 Type 1 diabetes mellitus without complication E10.9 Diabetes mellitus type: type 1 Diabetes mellitus complication status: without complication Erectile dysfunction due to diabetes mellitus E11.69; N52.1 History of tobacco use Z87.891 Additional Codes PHQ-9 - 76202 - PHQ-9 Billing: Yes ([id number]) DESI-7 Assessment Billing - DESI-7 Assessment Tool: DESI-7 Assessment 08155 ([id number]) Assessment & Plan Assessment & Plan (1) Annual physical exam: Comment: - The patient is generally healthy. - The plan is to order a full panel of screening labs, including electrolytes, blood counts, cholesterol, A1c, vitamin D, and screening for hepatitis, HIV, and syphilis. - If cholesterol is elevated, a statin will be initiated for primary prevention of cardiovascular disease. - A Cologuard test will be ordered for interval colorectal cancer screening. - The patient was strongly advised to receive his influenza and COVID-19 vaccinations. - He was also encouraged to maintain his active lifestyle. - A follow-up visit is scheduled in 6 months. Code(s): Z00.00 - Encounter for general adult medical examination without abnormal findings Category: Medical (2) Diabetes: Comment: - The patient demonstrates good control under the care of his delivery and installation subcontractor, with regular foot and eye exams and no reported neuropathy. - The plan includes obtaining an A1c for documentation and continuing his current insulin therapy. Code(s): E11.9 - Type 2 diabetes mellitus without complications Category: Medical Qualifiers: Diabetes mellitus type: type 1 Diabetes mellitus complication status: without complication Qualified Code(s): E10.9 - Type 1 diabetes mellitus without complications (3) Erectile dysfunction due to diabetes mellitus: Comment: - The patient is stable on daily Cialis 5 mg. - The plan is to continue the current treatment regimen. Code(s): E11.69 - Type 2 diabetes mellitus with other specified complication; N52.1 - Erectile dysfunction due to diseases classified elsewhere Category: Medical (4) History of tobacco use: Comment: - The patient is a former smoker who quit 30 years ago. - He does not meet criteria for lung cancer screening, and no further action is required. Code(s): Z87.891 - Personal history of nicotine dependence Category: Medical Plan: Health Maintenance: - Colon Cancer Screening: Patient had a colonoscopy in 2021 and is due for the next one in 2026. A Cologuard test was ordered for interval screening. - Lung Cancer Screening: Patient does not qualify for screening based on his smoking history. - Diabetic Screening: Patient has regular diabetic eye exams (last in summer of current year) and foot exams (with delivery and installation subcontractor). - Laboratory Screening: Orders placed for CBC, electrolytes, cholesterol, A1c, hepatitis panel, HIV, syphilis, and vitamin D levels. - Immunizations: Advised to get the flu and COVID-19 shots. - Lifestyle: Patient is a former smoker. He is physically active, and was encouraged to continue exercising. Patient was informed and verbally consented to the use of an ambient scribe for clinic note documentation during this visit. Plan I reviewed with the patient that this was his annual physical and confirmed he is generally healthy. I explained the plan to order comprehensive screening labs, including cholesterol and A1c, and informed him that if his cholesterol levels are elevated, we will start a statin medication to reduce his cardiovascular risk. I also informed him that I would be ordering a Cologuard test for interval colon cancer screening, which will be sent to his home. I strongly advised him to get his flu and COVID-19 vaccinations at a local pharmacy. We discussed that he does not qualify for lung cancer screening based on his smoking history. I informed the patient that lab results would be communicated through the patient portal and that he should follow up in six months. Orders: Orders Complete Blood Count Auto Diff Today E11.69 - Type 2 diabetes mellitus with other specified complication, E11.9 - Type 2 diabetes mellitus without complications, N52.1 - Erectile dysfunction due to diseases classified elsewher e, Z00.00 - Encounter for general adult medical examination without abnormal findings Comprehensive Met. Panel Today E11.69 - Type 2 diabetes mellitus with other specified complication, E11.9 - Type 2 diabetes mellitus without complications, N52.1 - Erectile dysfunction due to diseases classified elsewhere, Z00.00 - Encounter for general adult medical examination without abnormal findings Hemoglobin A1c Today E11.69 - Type 2 diabetes mellitus with other specified complication, E11.9 - Type 2 diabetes mellitus without complications, N52.1 - Erectile dysfunction due to diseases classified elsewhere, Z00.00 - Encounter for general adult medical examination without abnormal findings Hepatitis A,B,C Profile Today E11.69 - Type 2 diabetes mellitus with other specified complication, E11.9 - Type 2 diabetes mellitus without complications, N52.1 - Erectile dysfunction due to diseases classified elsewhere, Z00.00 - Encounter for general adult medical examination without abnormal findings Lipid Panel Today E11.69 - Type 2 diabetes mellitus with other specified complication, E11.9 - Type 2 diabetes mellitus without complications, N52.1 - Erectile dysfunction due to diseases classified elsewhere, Z00.00 - Encounter for general adult medical examination without abnormal findings Syphilis Screen Today E11.69 - Type 2 diabetes mellitus with other specified complication, E11.9 - Type 2 diabetes mellitus without complications, N52.1 - Erectile dysfunction due to diseases classified elsewhere, Z00.00 - Encounter for general adult medical examination without abnormal findings Vitamin D 25-OH Total Today E11.69 - Type 2 diabetes mellitus with other specified complication, E11.9 - Type 2 diabetes mellitus without complications, N52.1 - Erectile dysfunction due to diseases classified elsewhere, Z00.00 - Encounter for general adult medical examination without abnormal findings Microalbumin, Random (w Creat) Today E11.69 - Type 2 diabetes mellitus with other specified complication, E11.9 - Type 2 diabetes mellitus without complications, N52.1 - Erectile dysfunction due to diseases classified elsewhere, Z00.00 - Encounter for general adult medical examination without abnormal findings HIV Ab/Ag Today E11.69 - Type 2 diabetes mellitus with other specified complication, E11.9 - Type 2 diabetes mellitus without complications, N52.1 - Erectile dysfunction due to diseases classified elsewhere, Z00.00 - Encounter for general adult medical examination without abnormal findings TSH reflex Free T4 Today E11.69 - Type 2 diabetes mellitus with other specified complication, E11.9 - Type 2 diabetes mellitus without complications, N52.1 - Erectile dysfunction due to diseases classified elsewhere, Z00.00 - Encounter for general adult medical examination without abnormal findings Referrals Cologuard Test Z12.11 - Encounter for screening for malignant neoplasm of colon Patient Instructions: - Please go to a lab for blood work; you do not need to bring a paper order. The lab on [address] in [place] is an option. - A Cologuard kit will be mailed to your home. Please collect the sample as instructed and mail it back. - It is strongly recommended that you get your flu and COVID-19 shots at a pharmacy. - Continue to stay active and work out regularly. - Continue taking your current medications, including insulin and Cialis, as prescribed. - Check the patient portal for your lab results. - Schedule a follow-up appointment in six months.
--- OUTSIDE RECORDS SUMMARY | 2025-05-05 17:14 | XMS_ITS | Patient Health Record ---
Author Organization [facility] Address [address] [place] [address] Care Team Providers Care Cloth Shrinking Supervisor Name Role Phone NOÉ, JUVE Primary Care Provider Richard Olivarez [phone] Allergies No Known Allergies Results Component Value Reference Range Notes Giardia Ag Stool EIA Reviewed date:05/12/2024 05:33:47 PM Interpretation: Performing Lab:[address] [address] Notes/Report: Giardia Ag Stool EIA SEE NOTE GIARDIA AG, EIA, STOOL Micro Number: [id number] Test Status: Final Specimen Source: Stool Specimen Quality: Adequate Giardia Result 1: Not Detected Reference Range: Not Detected NOTE: Due to intermittent shedding, one negative sample does not necessarily rule out the presence of a parasitic infection. THIS TEST WAS PERFORMED AT: [facility] [address] [address] UCHE PANG MD Ova and Parasite Reviewed date:05/12/2024 05:34:12 PM Interpretation: Performing Lab:[address] [address] Notes/Report: Ova and Parasite SEE NOTE OVA AND PARASITES, CONC AND PERM SMEAR Micro Number: [id number] Test Status: Final Specimen Source: Stool Specimen [...] infection. For additional information, please refer to https://education.My [employer] Box.com/faq/RTD627 (This link is being provided for informational/ educational purposes only.) THIS TEST WAS PERFORMED AT: [facility] [place]- [address] [place] [phone] ALISON MURPHY MD GI PANEL Reviewed date:06/21/2024 01:05:56 PM Interpretation: Performing Lab:[facility], [address] [place] [phone] Notes/Report: Campylobacter Not Detected Not Detect. Plesiomonas shigelloides Not Detected Not Detect. Salmonella Not Detected Not Detect. Vibrio Not Detected Not Detect. Vibrio Cholerae Not Detected Not Detect. Yersinia enterocolitica Detected Not Detect. Results of Yersinia enterocolitica DETECTED called to and read back by (international banker) (and ICAM) on 05/09/24 at 1521 by [...] is performed by Multiplexed PCR, utilizing the [employer] Array. Giardia Ag Stool EIA Reviewed date:01/30/2025 10:55:12 PM Interpretation: Performing Lab:[address] [address] Notes/Report: Giardia Ag Stool EIA SEE NOTE GIARDIA AG, EIA, STOOL Micro Number: [id number] Test Status: Final Specimen Source: Stool Specimen Quality: Adequate Giardia Result 1: Not Detected Reference Range: Not Detected NOTE: Due to intermittent shedding, one negative sample does not necessarily rule out the presence of a parasitic infection. THIS TEST WAS PERFORMED AT: [facility] [address] [address] UCHE PANG MD Ova and Parasite Reviewed date:02/02/2025 08:54:43 AM Interpretation: Performing Lab:[address] [address] Notes/Report: Ova and Parasite SEE NOTE OVA AND PARASITES, CONC AND PERM SMEAR Micro Number: [id number] Test Status: Final Specimen Source: Stool Specimen [...] infection. For additional information, please refer to [email or web address] [employer] [email or web address]/faq/CFU549 (This link is being provided for informational/ educational purposes only.) THIS TEST WAS PERFORMED AT: [facility] [address] [place] [phone] ALISON MURPHY MD GI PANEL Reviewed date:01/26/2025 09:51:39 AM Interpretation: Performing Lab:[address] [place] [address] Notes/Report: Campylobacter Not Detected Not Detect. Plesiomonas [...] is performed by Multiplexed PCR, utilizing the [employer] Array. Reason For Referral No Information Medications Medication SIG (Take, Route, Frequency, Duration) Notes Start Date End Date Status BD Pen Needle Short U/F 31G X 8 MM ; Duration: 90 Active Basaglar KwikPen 100 UNIT/ML Subcutaneous; Duration: 30 A ctive HumaLOG 100 UNIT/ML as directed Subcutaneous Active [...] Problem Status W/U Status Risk Notes Problem Screening for malignant neoplasm of colon (696906991) Encounter for screening for malignant neoplasm of colon (Z12.11) Active confirmed Problem Change in bowel habit (72928526) Change in bowel habits (R19.4) Active confirmed Problem Preprocedural examination (032119957112087) Preprocedural examination (Z01.818) Active confirmed Problem Family history of colorectal cancer (3829470490262) Family history of colorectal cancer (Z80.0) Active confirmed Problem Acute diarrhea (641917426) Acute diarrhea (R19.7) Active confirmed Vital Signs Blood pressure diastolic 77 mm Hg 11/03/2024 Height 70 in 11/03/2024 Blood pressure systolic 111 mm Hg 11/03/2024 Weight 222 lbs 11/03/2024 BMI 31.85 kg/m2 11/03/2024 Encounters Encounter Location Date Provider Diagnosis [facility] [address] [place] [id number] 11/03/2024 Richard Youssef Abnormal stools R19.5 [facility] [address] [place] [phone] 05/16/2024 Richard Youssef [facility] [address] [place] [address] 09/23/2024 Richard Youssef Assessments Encounter Date Diagnosis [...] Insured Coverage Start Date Coverage End Date [facility] [address] [place] [phone] [id number] YARELI MENDOZA Self - patient is the insured Medical (General) History Medical History History ICD Code IDDM Denies AL,DM,CVA,Lung disease,renal dise ase Screening 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 The first time was treated with a 10-day course of sulfamethoxazole. He was seen by Infectious Disease at [facility], Dr. Howard. Surgical History Surgery Date(Month/Year)
--- OUTSIDE RECORDS SUMMARY | 2025-05-05 17:15 | XMS_ITS | Clinical Summary ---
Author Organization [facility] Address [address] [address] Care Team Providers Care Pumping Station Engineer Name Role Phone Unavailable Primary Care Provider [...] PCV) 021 Influenza Vaccine (#1) 2025 Insurance [facility]
== END 2025-05-05 14:27 | disposition home or self-care (01) ==
LOC: HO.HMCHD 14:01
PROVIDERS: PCP Internal Medicine; Visit Provider Student in an Organized Health Care Education/Training Program
DX: Z00.00 Encounter for general adult medical examination without abnormal findings (principal); E11.69 Type 2 diabetes mellitus with other specified complication; N52.1 Erectile dysfunction due to diseases classified elsewhere; Z87.891 Personal history of nicotine dependence

== ENCOUNTER → 2025-05-05 14:01 | Outpatient (BNVA) | payer OTHER, SELFPAY | PROVIDERS: PCP Internal Medicine; Visit Provider Student in an Organized Health Care Education/Training Program | DX: Z00.00 Encounter for general adult medical examination without abnormal findings (principal); E10.69 Type 1 diabetes mellitus with other specified complication; N52.1 Erectile dysfunction due to diseases classified elsewhere; Z87.891 Personal history of nicotine dependence; Z13.31 Encounter for screening for depression; Z13.39 Encounter for screening examination for other mental health and behavioral disorders | CPT/HCPCS: 96127 ==

== ENCOUNTER 2025-05-20 11:42 | Outpatient (AMB) | payer OTHER, SELFPAY ==
--- NOTE | 2025-05-20 12:01 | MHC.OFFVIS ---
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 He is a patient of Dr. Maya He seen for the following urologic conditions - erectile dysfunction Six-month follow-up T normal Discussed using tadalafil the morning He had racing heart when using combination pills from [facility] We discussed pharmacokinetics Erectile dysfunction in setting of diabetes Longstanding diabetic Had been using on demand sildenafil with some success Current therapy daily tadalafil with on demand sildenafil Labs - 03/25 T 515 LH 1.7 [facility] Medical History (Updated 05/05/25 @ 14:30 by Ketan Monteiro MD) History of tobacco use Annual physical exam Diabetes Surgical History History of colonoscopy (~11/24/21) [place] teeth extracted Family History (Updated 05/05/25 @ 14:15 by Radha Denny MA) Mother No problems noted. Father No problems noted. Social History Housing: House Patient Tobacco Use Status: Former Tobacco user e-Cigarette/Vaping Use: Former Use service: No Current occupational status: employed Cognitive needs: No Hearing needs: No Vision needs: Yes (rx glasses) Review of Systems Const Denies chills and Denies fever(s) Card Reports no additional complaints and Denies syncope Resp Denies cough GI Denies abdominal pain and Denies heartburn Reports as per HPI and Denies change in libido Neuro Denies syncope Psych Denies change in libido Endo Denies change in libido Physical Exam Const General: cooperative, healthy appearing, comfortable and no acute distress Orientation/consciousness: patient oriented x3 HEENT Face and sinus: Yes normal facial exam Mouth: moist mucous membranes Neck Neck: Yes normal visual inspection, Yes full ROM and Yes trachea midline Chest Chest palpation & inspection: normal inspection of the chest Resp Effort & Inspection: normal respiratory effort, able to speak in complete sentences and no respiratory distress GI Inspection: Yes normal to inspection Back/Spine/Pelvis Cervical Spine: normal cervical lordosis Thoracic/Lumbar Spine: thoracic and lumbar spine normal to inspection Skin General skin exam: no rashes or lesions noted Neuro General: patient oriented x3, gait normal, tone normal and moves all extremities Extrem General: Yes normal to inspection and Yes capillary refill normal Assessment & Plan Assessment & Plan (1) Erectile dysfunction due to diabetes mellitus: Comment: - The patient is stable on daily Cialis 5 mg. - The plan is to continue the current treatment regimen. Code(s): E11.69 - Type 2 diabetes mellitus with other specified complication; N52.1 - Erectile dysfunction due to diseases classified elsewhere Category: Medical Plan Six-month follow-up Patient Instructions: This note is constructed using voice recognition software. While every effort has been made to ensure accuracy coffee shop manager errors may have been included. Imaging studies, laboratory and physical exam results were discussed and reviewed in detail. No major barriers to patient understanding were identified. An opportunity to ask questions regarding the treatment plan was provided. All questions were answered. The patient expressed understanding and agreement with the above treatment plan. The patient is aware they should contact our office by phone for worsening of their current condition or the appearance of new urologic symptoms. Compliance is encouraged with any medications and followup testing that is ordered. It is a privilege to participate in the urologic care of your patient. If you have any questions or concerns regarding treatment for the above conditions, or other urologic issues, please do not hesitate to contact me. The office telephone contact is [phone]. Sincerely, Dr Carlos Zacarias MD, [facility] - Urology Compassionate Specialist Care for the Genitourinary System Coding Level of Care Code Est Pt Level 3 (85521) Complex EM visit Add On G2211 Diagnoses Erectile dysfunction due to diabetes mellitus E11.69; N52.1
== END 2025-05-20 12:28 | disposition home or self-care (01) ==
LOC: HO.HUSH 11:42
PROVIDERS: PCP Internal Medicine; Visit Provider Urology
DX: E11.69 Type 2 diabetes mellitus with other specified complication (principal); N52.1 Erectile dysfunction due to diseases classified elsewhere
CPT/HCPCS: 99213; G2211